=== PATIENT | male | born 1950 | race Caucasian/White ===

== ENCOUNTER → 2019-06-03 14:56 | Outpatient (CLI) | payer MEDICARE, BC, SELFPAY ==
--- NOTE | 2019-06-03 15:03 | XR_ITS ---
PROCEDURE: XR KNEE LT 3V CLINICAL INDICATION: LT KNEE PAIN COMPARISON: No exams were available for comparison FINDINGS: No fracture or dislocation. No lytic or blastic change. There is normal mineralization. Minimal osteoarthritic changes are present at the medial compartment Other findings:None. IMPRESSION: Minimal osteoarthritis medial compartment Dictated by: Charles Storm MD 06/03/2019 17:01 Electronically signed by Charles Storm MD in [facility] 06/03/2019 17:01
--- NOTE | 2019-06-03 15:03 | XR_ITS ---
PROCEDURE: XR SHOULDER LT MIN 2V CLINICAL INDICATION: LT SHOULDER PAIN COMPARISON: No exams were available for comparison FINDINGS: There is severe subacromial stenosis with loss of the subacromial space consistent with rotator cuff tear. This may be confirmed with MRI clinically desired. There is high-riding humeral head. Osteoarthritic changes are present at the glenohumeral joint. There is some mild cortical regularity the greater tuberosity the humerus. Mild osteoarthritic changes are present at the acromioclavicular joint. 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
== END ==
PROVIDERS: PCP Family Medicine; Visit Provider Family Medicine
DX: M25.512 Pain in left shoulder (principal); M25.562 Pain in left knee
CPT/HCPCS: 73030; 73562

== ENCOUNTER → 2020-10-23 13:15 | Outpatient (CLI) | payer MEDICARE, BC, SELFPAY ==
--- NOTE | 2020-10-23 13:21 | XR_ITS ---
PROCEDURE: XR HAND RT MIN 3V CLINICAL INDICATION: RIGHT HAND PAIN COMPARISON: No exams were available for comparison FINDINGS: Mild osteoarthritic changes are present at the 1st metacarpal-carpal joint, the 2nd and 3rd metacarpophalangeal joint, the proximal interphalangeal joint of the 4th digit. No fracture or dislocation. No lytic or blastic change. Other findings:None. IMPRESSION: Mild osteoarthritis of the hand Dictated by: Charles Storm MD 10/23/2020 14:29 Charles Storm MD in [facility] 10/23/2020 14:29
--- NOTE | 2020-10-23 13:32 | XR_ITS ---
PROCEDURE: XR HAND LT MIN 3V CLINICAL INDICATION: LT HAND PAIN COMPARISON: No exams were available for comparison FINDINGS: No fracture or dislocation. There is normal mineralization. There are mild osteoarthritic changes at the 1st carpal metacarpal joint, 1st metacarpal phalangeal joint, 1st interphalangeal joint, 2nd and 3rd metacarpophalangeal joint, 2nd 3rd 4th and 5th DIP joint. There is a small cortical cystic area involving the mid shaft of the proximal phalanx of the 4th digit medially nonspecific. Additional small cortical lucency is noted involving the mid aspect of the proximal phalanx of the 2nd digit medially Other findings:None. IMPRESSION: Degenerative changes as described above. Nonspecific cortical lucencies of the proximal phalanx of the 2nd and 4th digit of questionable clinical significance. Stability may be confirmed with follow-up. Dictated by: Charles Storm MD 10/23/2020 14:27 Charles Storm MD in [facility] 10/23/2020 14:27
== END ==
PROVIDERS: PCP Family Medicine; Visit Provider Orthopaedic Surgery
DX: M79.641 Pain in right hand (principal)
CPT/HCPCS: 73130

== ENCOUNTER 2020-10-23 14:31 | Outpatient (RCR) | payer MEDICARE, BC, SELFPAY | END 2020-10-23 15:20 | disposition home or self-care (01) | LOC: OT 14:31 | PROVIDERS: Visit Provider Orthopaedic Surgery | DX: M79.642 Pain in left hand (principal); M79.641 Pain in right hand; M18.0 Bilateral primary osteoarthritis of first carpometacarpal joints; G56.03 Carpal tunnel syndrome, bilateral upper limbs | CPT/HCPCS: 97763 ==

== ENCOUNTER → 2020-11-20 14:06 | Outpatient (CLI) | payer MEDICARE, BC, SELFPAY ==
--- NOTE | 2020-11-20 14:11 | XR_ITS ---
PROCEDURE: XR SHOULDER LT MIN 2V CLINICAL INDICATION: left shoulder pain COMPARISON: DX XR SHOULDER LT MIN 2V from 06/03/2019 FINDINGS: Mild osteoarthritic changes are present involving the glenohumeral joint and AC joint with high-riding humeral head and subacromial stenosis. The subacromial joint space is 4 mm. No fracture or dislocation. No lytic or blastic change. Other findings:None. IMPRESSION: Osteoarthritic change of the left glenohumeral joint with high-riding humeral head and subacromial stenosis. The subacromial stenosis appears less severe on today's study but could be related to different positioning. Dictated by: Charles Storm MD 11/20/2020 15:04 Charles Storm MD in [facility] 11/20/2020 15:04
== END ==
PROVIDERS: PCP Family Medicine; Visit Provider Orthopaedic Surgery
DX: M25.512 Pain in left shoulder (principal)
CPT/HCPCS: 73030

== ENCOUNTER → 2020-11-27 11:16 | Outpatient (POV) | payer MEDICARE, BC, SELFPAY ==
--- NOTE | 2020-11-27 12:32 | XR_ITS ---
PROCEDURE: XR HIP LT 2-3V W/PELVIS CLINICAL INDICATION: left hip pain COMPARISON: No exams were available for comparison FINDINGS: AP view of the pelvis shows minimal osteoarthritic changes of both hips. No acute fracture or dislocation. No lytic or blastic change. IMPRESSION: Minimal osteoarthritic change of the hips Dictated by: Charles Storm MD 11/27/2020 12:50 Charles Storm MD in [facility] 11/27/2020 12:50
--- NOTE | 2020-11-27 12:32 | XR_ITS ---
PROCEDURE: XR KNEE LT 4V CLINICAL INDICATION: left knee pain COMPARISON: DX XR KNEE LT 3V from 06/03/2019 FINDINGS: No fracture or dislocation. No lytic or blastic change. There is normal mineralization. There are minimal osteoarthritic changes involving the medial compartment. There is minimal chondrocalcinosis of the medial and lateral meniscus. Other findings:None. IMPRESSION: Mild osteoarthritic change with mild chondrocalcinosis. Overall not significantly changed. Dictated by: Charles Storm MD 11/27/2020 12:54 Charles Storm MD in [facility] 11/27/2020 12:54
== END ==
PROVIDERS: PCP Family Medicine; Visit Provider Dermatology
DX: M25.562 Pain in left knee (principal); M25.552 Pain in left hip
CPT/HCPCS: 73502; 73564

== ENCOUNTER → 2021-09-17 14:24 | Outpatient (CLI) | payer MEDICARE, BC, SELFPAY ==
--- NOTE | 2021-09-17 14:31 | XR_ITS ---
FINAL REPORT CLINICAL HISTORY: thumb pain FINDINGS: LEFT HAND: 3 views of the left hand were obtained. There is no acute fracture or dislocation. There are moderate degenerative changes of the 1st CMC and interphalangeal joints. There are mild degenerative changes elsewhere. There is a small foreign body on or in the tip of the 5th digit. IMPRESSION: Mild and moderate degenerative changes. Small foreign body on or in the tip of the 5th digit. Reviewed, Interpreted and Dictated by Esteban Dockery III, MD Transcribed by Perico Acuña Authenticated by Esteban Dockery III, MD on 09/17/2021 04:19:22 PM [facility]
--- NOTE | 2021-09-17 14:31 | XR_ITS ---
FINAL REPORT CLINICAL HISTORY: right hip pain FINDINGS: 2 views of the right hip were obtained. There is no acute fracture or dislocation. There are mild degenerative changes. There are no soft tissue abnormalities. IMPRESSION: Mild degenerative change. Reviewed, Interpreted and Dictated by Esteban Dockery III, MD Transcribed by Perico Acuña Authenticated by Esteban Dockery III, MD on 09/17/2021 04:19:21 PM [facility]
--- NOTE | 2021-09-17 14:31 | XR_ITS ---
FINAL REPORT CLINICAL HISTORY: hip pain, left hip pain , pt stated he had a hernia repair many years COMPARISON: November 27, 2020 FINDINGS: 2 views of the left hip with an AP pelvis were obtained. There is no acute fracture or dislocation. There are mild degenerative changes of both hips and the lower lumbar spine. There is a new small foreign body in the left lower pelvis that could represent an ingested foreign body. IMPRESSION: Mild degenerative change. Foreign body in the left lower pelvis could represent an ingested foreign body. Reviewed, Interpreted and Dictated by Esteban Dockery III, MD Transcribed by Perico Acuña Authenticated by Esteban Dockery III, MD on 09/17/2021 04:19:26 PM [facility]
--- NOTE | 2021-09-17 14:31 | XR_ITS ---
FINAL REPORT CLINICAL HISTORY: thumb pain FINDINGS: 3 views of the right hand were obtained. There is no acute fracture or dislocation. There are moderate degenerative changes at the 1st CMC joint. There are mild degenerative changes elsewhere. There is no acute soft tissue abnormality. IMPRESSION: Mild and moderate degenerative changes. Reviewed, Interpreted and Dictated by Esteban Dockery III, MD Transcribed by Perico Acuña Authenticated by Esteban Dockery III, MD on 09/17/2021 04:19:27 PM [facility]
== END ==
PROVIDERS: PCP Family Medicine; Visit Provider Surgery
DX: M25.551 Pain in right hip (principal); M25.552 Pain in left hip; M18.12 Unilateral primary osteoarthritis of first carpometacarpal joint, left hand; M18.11 Unilateral primary osteoarthritis of first carpometacarpal joint, right hand
CPT/HCPCS: 73130; 73502

== ENCOUNTER 2021-10-14 17:31 | Emergency (ER) | payer MEDICARE, BC, SELFPAY ==
[2021-10-14 17:32] VITALS: BP 147/85; PULSE 78; RESP 16; TEMP 36.7; O2SAT 95; BMI 21.9
--- NOTE | 2021-10-14 17:34 | CT_ITS ---
PROCEDURE INFORMATION: Exam: CT Head Without Contrast Exam date and time: 10/14/2021 5:33 PM Age: 71 years old Clinical indication: Dizziness and speech disturbance and weakness, extremity; Right; Slurred speech; Additional info: Left arm numbness, slurred speech TECHNIQUE: Imaging protocol: Computed tomography of the head without contrast. Radiation optimization: All CT scans at this facility use at least one of these dose optimization techniques: automated exposure control; mA and/or kV adjustment per patient size (includes targeted exams where dose is matched to clinical indication); or iterative reconstruction. COMPARISON: No relevant prior studies available. FINDINGS: Brain: There is no acute cortical infarction, intracranial hemorrhage or mass. Cerebral ventricles: No significant ventriculomegaly. Paranasal sinuses: There is prominent mucoperiosteal thickening in the left maxillary antrum.The remainder of the paranasal sinuses appear clear. Mastoid air cells: The middle ear cavities and mastoid air cells are clear. Vasculature: Atherosclerosis. Bones/joints: Unremarkable. No acute fracture. Soft tissues: Unremarkable. IMPRESSION: No acute intracranial findings.
--- NOTE | 2021-10-14 17:46 | PC.NURSE ---
Dena Durbin, RN at
[2021-10-14 17:47] VITALS: BP 136/77; PULSE 68; O2SAT 97
--- NOTE | 2021-10-14 17:47 | ECG_ITS ---
APPROVED REPORT Exam: Resting ECG HR:65 bpm ECG Measurements Heart Rate 65 AXES [place] 126 P 72 QRSd 90 QRS 67 QT 430 T 75 QTc 442 Conclusion SINUS RHYTHM NORMAL ECG UNCONFIRMED REPORT Electronically signed by : Andrei Hendrickson MD 10/15/2021 21:28:14
--- NOTE | 2021-10-14 17:49 | PC.NURSE ---
ED MD at speaking with patient and family
[2021-10-14 17:52] VITALS: BP 141/75; PULSE 65; O2SAT 96
[2021-10-14 18:02] LABS: Basophils # 0.1 K/mm3 (0-0.2); Basophils % 1.7 % (0.1-2.0); Eosinophils # 0.1 K/mm3 (0.0-0.4); Eosinophils % 1.3 % (0.1-12.0); Hemoglobin 13.5 g/dL (14.1-18.0); Lymphocytes # 0.7 K/mm3 (0.7-4.5); Lymphocytes % 13.4 % (10-50); Mean Corpuscular Hemoglobin 31.2 pg (27.0-31.2); Mean Corpuscular Volume 94.6 fl (80-94); Mean Platelet Volume 9.3 fl (7.4-10.4); Monocytes # 0.4 K/mm3 (0.1-1.0); Monocytes % 7.8 % (1.7-9.3); Neutrophils # 3.9 K/mm3 (1.8-7.8); Neutrophils % 75.8 % (37.0-80.0); Platelet Count 223 K/mm3 (142-424); Red Blood Count 4.33 M/mm3 (4.60-6.20); Red Cell Distribution Width 14.4 % (11.5-17.5); White Blood Count 5.2 K/mm3 (4.8-10.8)
[2021-10-14 18:06] LABS: Chloride 106 mmol/L (98-107); Sodium 138 mmol/L (136-145)
[2021-10-14 18:09] LABS: Alanine Aminotransferase 55 U/L (12-78); Albumin Level 3.8 g/dl (3.5-5.0); Albumin/Globulin Ratio 1.5 (1.1-1.8); Alkaline Phosphatase 52 U/L (38-126); Anion Gap 14.8 mEq/L (5-15); Aspartate Amino Transferase 66 U/L (17-59); Blood Urea Nitrogen 14 mg/dl (9-20); Carbon Dioxide 20 mmol/L (22.0-30.0); Creatinine Clearance Estimated 60 mL/min (50-200); Estimated Glomerular Filt Rate 132 ml/min (>60); GFR (African American) 160 ML/MIN (>60); Globulin 2.6 g/dL (1.3-3.2); Total Protein,Serum 6.4 g/dl (6.3-8.2)
[2021-10-14 18:10] LABS: Glucose 109 mg/dl (74-100)
[2021-10-14 18:14] LABS: Calcium 5.5 mg/dl (8.4-10.2); Potassium 2.8 mmoL/L (3.5-5.1)
[2021-10-14 18:27] LABS: Troponin I < 0.01 ng/ml (0.00-0.034)
[2021-10-14 19:02] LABS: Thyroid Stimulating Hormone 3.52 uIU/mL (0.465-4.68)
--- NOTE | 2021-10-14 19:35 | PC.NURSE ---
phone call to [facility] for consult with stroke neurology, Dr. Holt division sergeant
[2021-10-14 19:39] LABS: Ammonia < 9 umol/L (9-30)
--- NOTE | 2021-10-14 19:54 | PC.NURSE ---
ED doctor on phone with [facility]
--- NOTE | 2021-10-14 21:03 | HMH.EDGENADL ---
ED Disposition Clinical Impression: Weakness Disposition: Home, Self-Care Condition on Discharge: Good Additional Instructions: Follow-up with your primary care physician for repeat potassium and calcium check and for further recommendations regarding atorvastatin and baby aspirin, which you should take until meeting with your primary care physician. Please also follow-up with neurology at the [facility] if you are having persistent symptoms: [phone]. Please return to the emergency department with any new or worsening symptoms including weakness, slurred speech, change in sensation, change in mental status, confusion or any other new or concerning symptoms. Please take your home calcium and potassium supplements. Prescriptions: Aspirin [Aspirin 81mg chewable tab] 81 mg PO DAILY #30 tab Transmission Status: Pending to [facility] Atorvastatin Calcium [Lipitor 40mg Tablet*] 40 mg PO HS #30 tab Transmission Status: Pending to [facility] Referrals: Stephani Duenas MD [Primary Care Provider] - - Critical Care Critical Care Time: No Attestation: On 10/14/21, the high probability of a clinically significant, sudden or life threatening deterioration of the following system(s) required my full and direct attention, intervention and personal management. The time I documented below is in addition to time spent performing reported procedures but includes the following listed in this critical care notation. Medical Decision Making - Emanuel Inquiry Pt receiving controlled substance: No Vital Signs: 10/14/21 17:32 10/14/21 17:47 10/14/21 17:52 Temperature 98.0 F Temperature Source Oral Pulse Rate 68 65 Pulse Rate [Left Radial] 78 Respiratory Rate 16 Blood Pressure 136/77 141/75 H Blood Pressure [Right Arm] 147/85 H Blood Pressure Mean [Right Arm] 105 Blood Pressure Source Automatic Cuff Automatic Cuff Blood Pressure Source [Right Arm] Automatic Cuff Blood Pressure Position Sitting Sitting Blood Pressure Position [Right Arm] Sitting 02 Sat by Pulse Oximetry 95 97 96 Oxygen Delivery Method Room Air Room Air 10/14/21 21:43 Temperature 98.1 F Temperature Source Pulse Rate 60 Pulse Rate [Left Radial] Respiratory Rate 16 Blood Pressure 125/76 Blood Pressure [Right Arm] Blood Pressure Mean [Right Arm] Blood Pressure Source Blood Pressure Source [Right Arm] Blood Pressure Position Blood Pressure Position [Right Arm] 02 Sat by Pulse Oximetry Oxygen Delivery Method Room Air - Lab Data Lab Results 10/14/21 17:49: WBC 5.2, RBC 4.33 L, Hgb 13.5 L, Hct 41.0 L, MCV 94.6 H, MCH 31.2, MCHC 33.0, RDW 14.4, Plt Count 223, MPV 9.3, Neut % (Auto) 75.8, Lymph % (Auto) 13.4, Swisher % (Auto) 7.8, Eos % (Auto) 1.3, Baso % (Auto) 1.7, Neut # (Auto) 3.9, Lymph # (Auto) 0.7, Swisher # (Auto) 0.4, Eos # (Auto) 0.1, Baso # (Auto) 0.1 10/14/21 17:49: Sodium 138, Potassium 2.8 L*, Chloride 106, Carbon Dioxide 20 L, Anion Gap 14.8, BUN 14, Creatinine 0.60 L, Estimated Creat Clear 60, Estimated GFR 132, Est GFR ( Amer) 160, Glucose 109 H, Calcium 5.5 L, Total Bilirubin 1.0, AST 66 H, ALT 55, Alkaline Phosphatase 52, Troponin I < 0.01, Total Protein 6.4, Albumin 3.8, Globulin 2.6, Albumin/Globulin Ratio 1.5 10/14/21 17:49: TSH 3.52 10/14/21 19:18: Ammonia < 9 L 10/14/21 20:47: Troponin I 0.01 Result diagrams: 10/14/21 17:49 10/14/21 17:49 Orders (Tests/Meds): ED MEDICATIONS Discontinued Medications Generic Name Dose Route Start Last Admin Trade Name Freq PRN Reason Stop Dose Admin Potassium Chloride 40 meq 10/14/21 18:35 10/14/21 18:37 Potassium Chloride 20meq Tab PO 10/14/21 18:36 40 meq ONCE ONE Administration ORDERS Category Date Time Status Troponin I Q3H Lab 10/14/21 23:45 Ordered Urinalysis and Microscopic Stat Lab 10/14/21 17:37 Ordered Medical Decision Narrative: 71-year-old male presents emergency department with great
[2021-10-14 21:36] LABS: Troponin I 0.01 ng/ml (0.00-0.034)
[2021-10-14 21:43] VITALS: BP 125/76; PULSE 60; RESP 16; TEMP 36.7; O2SAT 96
== END 2021-10-14 22:07 | disposition home or self-care (01) ==
PROVIDERS: Emergency Provider Student in an Organized Health Care Education/Training Program; PCP Family Medicine
DX: R53.1 Weakness (principal); R20.2 Paresthesia of skin; I10 Essential (primary) hypertension; E78.5 Hyperlipidemia, unspecified; E03.9 Hypothyroidism, unspecified; F17.210 Nicotine dependence, cigarettes, uncomplicated; Z79.82 Long term (current) use of aspirin; Z79.899 Other long term (current) drug therapy; Z86.73 Personal history of transient ischemic attack (TIA), and cerebral infarction without residual deficits
CPT/HCPCS: 36415; 70450; 80053; 82140; 84443; 84484; 85025; 93005; 99284

== ENCOUNTER → 2021-10-25 10:17 | Outpatient (CLI) | payer MEDICARE, BC, SELFPAY ==
--- NOTE | 2021-10-25 10:23 | CT_ITS ---
FINAL REPORT TECHNIQUE: Pre-and postcontrast axial imaging of the abdomen and pelvis was obtained. Reconstruction images were obtained from the axial data. This study was performed with techniques to keep radiation doses as low as reasonably achievable, (ALARA). Individualized dose reduction technique using automated exposure control or adjustment of mA and/or kV according to the patient's size were employed. CLINICAL HISTORY: ELEVATED LIPASE COMPARISON: None. FINDINGS: The lung bases are clear. The liver is homogeneous. The gallbladder is present. The spleen, adrenal glands, and pancreas are unremarkable. On noncontrast imaging, there is a tiny nonobstructing left renal stone. There is no hydronephrosis or renal mass. There is wall thickening of the gastric fundus. There is also prominent duodenal wall thickening involving the proximal duodenum. There is no evidence of small bowel obstruction. There is no lymphadenopathy or ascites. The prostate is normal in size for age. There is a large amount of stool in the colon, consistent with constipation. The appendix is not visualized. There is no lymphadenopathy or ascites. No acute osseous abnormalities identified. IMPRESSION: Wall thickening of the gastric fundus as well as the proximal portions of the duodenum. Favor duodenitis and gastritis. Neoplasm felt to be less likely. Consider endoscopy. No CT findings of acute pancreatitis. However, a patient's can have mild acute pancreatitis based on laboratory studies without CT findings. Constipation. Authenticated by Jessica Back MD on 10/25/2021 11:57:51 AM [facility]
== END ==
PROVIDERS: PCP Family Medicine; Visit Provider Family Medicine
DX: R74.8 Abnormal levels of other serum enzymes (principal)
CPT/HCPCS: 74178; Q9967

== ENCOUNTER → 2021-11-24 14:07 | Outpatient (CLI) | payer MEDICARE, BC, SELFPAY | PROVIDERS: PCP Family Medicine; Visit Provider Internal Medicine | DX: U07.1 COVID-19 (principal) | CPT/HCPCS: C9803; U0003; U0005 ==

== ENCOUNTER → 2021-11-25 12:33 | Outpatient (CLI) | payer MEDICARE, BC, SELFPAY ==
[2021-11-25 12:50] LABS: Coronavirus 19, PCR Not Detected (NotDetected); Influenza A, PCR Not Detected (NotDetected); Influenza B, PCR Not Detected (NotDetected)
== END ==
PROVIDERS: PCP Family Medicine; Visit Provider Internal Medicine
DX: U07.1 COVID-19
CPT/HCPCS: C9803; U0003; U0005

== ENCOUNTER → 2021-11-26 10:58 | Outpatient (CLI) | payer MEDICARE, BC, SELFPAY ==
[2021-11-26 11:56] LABS: Coronavirus 19, PCR Not Detected (NotDetected); Influenza A, PCR Not Detected (NotDetected); Influenza B, PCR Not Detected (NotDetected)
== END ==
PROVIDERS: PCP Family Medicine; Visit Provider Internal Medicine
DX: U07.1 COVID-19 (principal)
CPT/HCPCS: C9803; U0003; U0005

== ENCOUNTER 2021-11-27 08:35 | Day surgery (SDC) | payer MEDICARE, BC, SELFPAY ==
[2021-11-25 11:22] VITALS: BMI 20.5
[2021-11-27 08:54] VITALS: BP 146/84; PULSE 68; RESP 18; TEMP 36.2; O2SAT 98
--- NOTE | 2021-11-27 09:08 | P.PN_ITS ---
[facility] Anesthesia Checklist - Patient Identification Patient Identification: Arm Band - Structural Data Admitted From: Home Planned Operative Procedure/s: EGD Consent for Planned Operative Procedure(s) Verified: Yes - NPO Status Verified Time NPO: 00:00 - Additional verifications Anesthesia Reactions: No - Airway Assessment C-Spine Mobility Assessed: Yes TMJ Mobility Assessed: Yes Dentition: Poor Dentition - Neurological Assessment Level of Consciousness: Awake Hx Seizures: No Numbness or tingling in extremities: No - Anesthesia Plan Anesthesia Risk discussed: Yes Anesthesia Plan: Verified ASA Class: II Anesthesia Type: MAC [facility] History I have reviewed the patient's past medical history: Yes Medical History: Reports:: Cancer (SKIN CANCER ON NOSE), Hyperlipidemia Denies:: Diabetes Mellitus Type 1, Diabetes Mellitus Type 2, Hypertension, Internal Pacemaker, Lung Disease, MRSA, Seizures *Have you ever received a pneumonia vaccine?: Yes *Have you received a flu vaccine this season?: Yes Other Medical History: Reports: Hypothyroidism, Thyroid Disease Anesthesia experience/problems:: None Other Surgeries: Yes: Colonoscopy, Hernia Repair, Other. No: Pacemaker Amputation: No Fractures: No - *Social History Last grade of school completed: 7th or 8th Smoking Status: Former smoker #Yrs smoked (if former smoker): 15 Smoking End Date: 35 YEARS AGO Alcohol Intake: current Alcohol Intake Frequency:: 0-2 drinks per day Substance Use Type: denies use *Occupational Status:: retired Housing: house Household Members: spouse *Travel in the last 8 weeks: None Family Hx:: Cancer, Diabetes, Heart Attack, Stroke
[2021-11-27 09:21] VITALS: O2SAT 98
--- NOTE | 2021-11-27 09:39 | HMH.SCOPE ---
- Procedure: Date: 11/27/21 Patient Date of :: 1950 Procedure Performed:: EGD Indications:: The patient is a 71 year old who had recent CT abdomen showing mild wall thickening of the gastric fundus and proximal duodenum. Performing Provider:: Raj Babcock MD Referring Provider:: Harsha Valero MD Sedation:: See nursing records Procedure:: The gastroscope was gently passed through the incisoral orifice into the oral cavity and under direct visualization the esophagus was intubated. The endoscope was passed down the esophagus, through the stomach, and into the duodenum. Color, texture, mucosa, and anatomy of the esophagus, stomach, and duodenum were carefully examined with the scope. Findings:: Oropharynx: normal Esophagus: normal EG Junction: mesaured at 40 cm. Z-line was slight irregular and there was a small tongue of salmon colored mucosa. Biopsies obtained Cardia: Small hiatal hernia Fundus: Gastritis. Somewhat nodular in appearance. Biopsies obtained Body: Gastritis. Biopsies obtained. Stomach was J-shaped Antrum: Gastritis. Biopsies obtained Duodenal bulb: Duodenitis. Focal area of gastric heterotopia. Biopsies obtained Duodenum (second and third portion): normal. Biopsies obtained Recommendations:: Await pathology results Complications:: None Estimated blood obtained (mL): 0
[2021-11-27 09:42] VITALS: BP 113/61; PULSE 93; RESP 18; TEMP 36.1; O2SAT 97
[2021-11-27 09:52] VITALS: BP 126/65; PULSE 85; RESP 18; TEMP 36.1; O2SAT 98
[2021-11-27 10:02] VITALS: BP 122/65; PULSE 79; RESP 18; TEMP 36.1; O2SAT 98
[2021-11-27 10:15] VITALS: BP 110/67; PULSE 78; RESP 18; TEMP 36.1; O2SAT 96
== END 2021-11-27 10:15 | disposition home or self-care (01) ==
LOC: OUTP 08:37
PROVIDERS: PCP Family Medicine; Visit Provider Internal Medicine
PROC: 0DJ08ZZ Inspection of Upper Intestinal Tract, Via Natural or Artificial Opening Endoscopic (ICD-10-PCS; CPT 43235; principal; 2021-11-27 09:30)
DX: R10.11 Right upper quadrant pain (principal); E78.5 Hyperlipidemia, unspecified; Z79.899 Other long term (current) drug therapy
CPT/HCPCS: 43239; 88305

== ENCOUNTER → 2022-02-11 11:56 | Outpatient (CLI) | payer MEDICARE, BC, SELFPAY ==
--- NOTE | 2022-02-11 12:00 | XR_ITS ---
FINAL REPORT CLINICAL HISTORY: Right knee pain FINDINGS: RIGHT KNEE 4 views of the right knee were obtained. There is no acute fracture or dislocation. There are mild degenerative changes. Meniscal calcifications are noted. IMPRESSION: No acute bony abnormality. Reviewed, Interpreted and Dictated by Esteban Dockery III, MD Transcribed by Diann Huntley Authenticated and [facility]
== END ==
PROVIDERS: PCP Family Medicine; Visit Provider Orthopaedic Surgery
DX: M25.561 Pain in right knee (principal)
CPT/HCPCS: 73564

== ENCOUNTER 2022-09-06 17:52 | Emergency (ER) | payer MEDICARE, BC, SELFPAY ==
--- NOTE | 2022-09-06 18:52 | EXP.UTC ---
Discharge Plan Disposition Patient Disposition: Home, Self-Care Condition: Good Prescriptions Prescriptions: New cephalexin 500 mg capsule 500 mg PO QID Qty: 40 0RF No Action potassium chloride 10 MEQ tablet extended release 10 meq PO BID levothyroxine 75 MCG capsule 75 mcg PO DAILY calcium-vitamin D3-vitamin K 1 EACH tablet,chewable 600 mg PO DAILY Referrals Follow up/Referrals: Harsha Valero MD [Primary Care Provider] - See instructions Activity Restrictions/Add. Instructions Additional Instructions/Restrictions: Keep the wound clean and dry. Keep a dressing on it if you are going to be getting it dirty. Watch the wound for signs of infection, such as redness, swelling, drainage, fever. etc. take tylenol or ibuprofen for pain. Follow up with your regular doctor. Return in 10 days to have the sutures removed. GO TO THE ER FOR ANY WORSENING SYMPTOMS OR CONCERNS. Check with your primary care physician about your last tetanus immunization and go get one if its been longer than 5 years. Clinical Impressions Clinical Impression: Laceration of left index finger Instructions Patient Instructions: DI for Laceration Repair -- Finger Discharge ED Provider: Gamaliel Beth [facility] General Stated complaint: ao 09/05, left hand pointer finger lac Time Seen by Provider: 09/06/22 18:52 History of Present Illness Provider Complaint: He states that yesterday evening (approx 16 hours ago) he slipped with a box blank machine feeder and cut his left index finger. Since then he has had trouble with the wound continuing to bleed and break open. He is not a diabetic. Related Data Home Medications Medication Instructions Recorded Confirmed calcium-vitamin D3-vitamin K 500 600 mg PO DAILY Supplement 11/25/21 09/06/22 mg-1,000 unit-40 mcg chewable tablet levothyroxine 75 mcg capsule 75 mcg PO DAILY THYROID 11/25/21 09/06/22 potassium chloride 10 mEq 10 meq PO BID Supplement 11/25/21 09/06/22 tablet,extended release Previous Rx's Medication Instructions Recorded cephalexin 500 mg capsule 500 mg PO QID #40 caps 09/06/22 Allergies Allergy/AdvReac Type Severity Reaction Status Date / Time No Known Allergies Allergy Verified 09/06/22 19:23 [facility] Disclaimer: The information contained in this section may have been updated after the patient was seen, as this information can be updated by other users. Social History Smoking Status: Former smoker pack-years: 15 second hand exposure: No alcohol intake: current substance use type: denies use current occupational status: retired Travel in the last 8 weeks: None household members: spouse housing: house current occupational exposures/hazards: No caffeine: Yes ROS Obtained: Yes All systems reviewed & no additional complaints except as documented Constitutional Constitutional: Denies chills and Denies fever(s) Eyes Eyes: Denies eye discharge ENT Ears, Nose, Mouth, and Throat: Denies dizziness, Denies otalgia and Denies sore throat Cardiovascular Cardiovascular: Denies chest pain Respiratory Respiratory: Denies shortness of breath, Denies chest congestion, Denies cough, Denies stridor and Denies wheezing Gastrointestinal Gastrointestingal: Denies nausea or vomiting Musculoskeletal Musculoskeletal: Reports system reviewed and no additional complaints, except as documented and Denies arthralgias Integumentary/Breasts Skin/Breast: Reports as per HPI Neurologic Neurologic: Denies dizziness and Denies paresthesias Allergic/Immunologic Allergic/Immunologic: Denies wheezing Physical Exam General General appearance: alert and in no apparent distress Head Head exam: atraumatic, normocephalic and normal inspection Eye Eye exam: Present normal appearance, PERRL and EOMI ENT ENT exam: Present normal exam, normal oropharynx, mucous membranes moist, TM'
[2022-09-06 19:00] VITALS: BP 156/83; PULSE 77; RESP 20; TEMP 36.8; O2SAT 95; BMI 21.6
--- NOTE | 2022-09-06 20:00 | PC.NURSE ---
Gamaliel spoke with Pt and stated that he will speak with pcp about tdap shot. If he needs one he will get it there.
[2022-09-06 20:09] VITALS: BP 156/83; PULSE 77; RESP 20; TEMP 36.8; O2SAT 95
== END 2022-09-06 20:08 | disposition home or self-care (01) ==
PROVIDERS: Emergency Provider Nurse Practitioner Family; PCP Family Medicine
DX: S61.211A Laceration without foreign body of left index finger without damage to nail, initial encounter (principal); F17.210 Nicotine dependence, cigarettes, uncomplicated; W26.8XXA Contact with other sharp object(s), not elsewhere classified, initial encounter
CPT/HCPCS: 12001; 99212; 99213; 99214; G0463

== ENCOUNTER 2022-10-31 09:46 | Day surgery (SDC) | payer MEDICARE, BC, SELFPAY ==
[2022-10-29 12:13] VITALS: BMI 18.8
[2022-10-31] VITALS (7 sets, daily range): BP systolic 84–145; BP diastolic 55–89; PULSE 66–89; RESP 16–18; TEMP 36.2–36.3; O2SAT 95–99
--- NOTE | 2022-10-31 10:26 | P.PN_ITS ---
[facility] Disclaimer: The information contained in this section may have been updated after the patient was seen, as this information can be updated by other users. Medical History Hemorrhoid Hypothyroid Surgical History History of colonoscopy Family History Other Family history of diabetes mellitus type II Family history of hypertension Social History Smoking Status: Former smoker pack-years: 15 second hand exposure: No alcohol intake: current substance use type: denies use current occupational status: retired Travel in the last 8 weeks: None household members: spouse housing: house current occupational exposures/hazards: No caffeine: Yes [facility] Anesthesia Checklist Patient Identification Patient Identification: Arm Band and Verbal (Name & ) Structural Data Admitted From: Home Planned Operative Procedure/s: Colonoscopy Consent for Planned Operative Procedure(s) Verified: Yes NPO Status Verified Time NPO: 00:00 Chart Verification Results Verified: BMP Additional verifications Anesthesia Reactions: No Airway Assessment C-Spine Mobility Assessed: Yes TMJ Mobility Assessed: Yes Dentition: Good Dentition Neurological Assessment Level of Consciousness: Awake Hx Seizures: No Numbness or tingling in extremities: No Anesthesia Plan Anesthesia Risk discussed: Yes Anesthesia Plan: Verified ASA Class: II Anesthesia Type: MAC
[2022-10-31 10:43] LABS: Potassium 3.7 mmoL/L (3.5-5.1)
--- NOTE | 2022-10-31 12:02 | HMH.SCOPE ---
Procedure: Date: 10/31/22 Patient Date of :: 1950 Procedure Performed:: Total colonoscopy with multiple polypectomy Indications:: Patient presents for colonoscopy.? He had recently presented to the office with complaints of internal hemorrhoids with some discomfort and bleeding. I performed colonoscopy in 2012 at which time he had adenomatous polyps removed. I had seen him in 2019 at which time he had an internal thrombosed hemorrhoid.? He underwent colonoscopy on 07/27/2018.? He did have a polyp at the hepatic flexure which was a tubular adenoma.? There were some internal hemorrhoids.? His internal hemorrhoid issue resolved with [id number] regimen.? Recently he has had some symptoms of hemorrhoid prolapse and discomfort.? He has had some minimal bleeding.? It sounds as though he does have a family history of colon issues and has had several members having colectomy.? After his colonoscopy in 2019 I had recommended a repeat colonoscopy in 3 to 5 years. As he was due for colonoscopy plan was made to proceed with this. He does state that his hemorrhoid issues have improved. Patient has had some recent appreciable weight loss. Performing Provider:: Esteban Reaves MD Referring Provider:: . Sedation:: MAC sedation Procedure:: Patient history was obtained and appropriate physical examination was performed. Patient's medications and allergies were reviewed. Informed consent was obtained after explaining the benefits, alternatives, and risks of the procedure including, but not limited to, bleeding, perforation, missed lesions, and adverse reaction to anesthesia medications. Patient was transported to endoscopy procedure room. Patient was connected to monitoring devices. Throughout the procedure the patient's blood pressure, pulse, and oxygen saturations were monitored continuously. Patient identification and planned procedure were verified by the staff. Patient was positioned in lateral decubitus position. Digital anorectal exam was performed. Variable stiffness Olympus colonoscope was inserted and advanced under direct visualization to the cecum. Adequacy of the colonic preparation was noted. The colonoscope was then slowly withdrawn while carefully examining the color, texture, anatomy, and integrity of the mucosoa circumferentially. Within the rectum retroflexion was performed. Colonoscope was then withdrawn. He had a severely atonic very redundant floppy colon Which made advancement difficult. This may be partially due to his weight loss. Ultimately with prolonged time the colonoscope was advanced to the cecum. At the hepatic flexure there was a sessile adenomatous appearing polyp removed with cold snare. Transverse colon there was an adenomatous polyp removed with cold snare. In the descending colon there was a moderate ridge polyp, sessile, removed with hot snare. There was redundancy of the colonic mucosa with colonic atony and overall colonic redundancy. Findings:: Profoundly atonic redundant floppy colon Redundant mucosa Adenomatous appearing polyps as noted above at the hepatic flexure, transverse colon, and descending colon Mild to moderately prolapsing internal hemorrhoids Recommendations:: It was felt that hemorrhoid banding would not be beneficial and may be problematic at this time. Given the complex adenomatous appearing polyps likely repeat colonoscopy 2 to 3 years pending the pathology. However, given the technical difficulty of his colonoscopy this may be best performed by a skilled anthropology faculty member with adult colonoscope. Complications:: None immediately apparent Estimated blood obtained (mL): 2
--- NOTE | 2022-10-31 12:30 | SUR.PHASEII ---
oral airway and nasal trumpet removed out of patient at 1225.
== END 2022-10-31 12:42 | disposition home or self-care (01) ==
PROVIDERS: PCP Family Medicine; Visit Provider Surgery
PROC: 0DJD8ZZ Inspection of Lower Intestinal Tract, Via Natural or Artificial Opening Endoscopic (ICD-10-PCS; principal; 2022-10-31 14:00)
DX: Z12.11 Encounter for screening for malignant neoplasm of colon (principal); D12.3 Benign neoplasm of transverse colon; K64.8 Other hemorrhoids
CPT/HCPCS: 45385; 36415; 84132; 88305; J2704

== ENCOUNTER → 2022-11-18 15:13 | Outpatient (CLI) | payer MEDICARE, BC, SELFPAY ==
--- NOTE | 2022-11-18 15:18 | XR_ITS ---
FINAL REPORT CLINICAL HISTORY: rt hand pain x yrs, NKT COMPARISON: 09/17/2021 FINDINGS: Right hand Three views were obtained. There is no acute fracture or dislocation. There is abnormal joint space narrowing of the 2nd and 3rd metacarpophalangeal joints , DIP and PIP joints. There are jrbt-[id number] hypertrophic changes of the basilar joint. No soft tissue abnormality is identified. IMPRESSION: Moderate changes of osteoarthritis, similar to previous. Reviewed, Interpreted and Dictated by Avery Bolanos MD Transcribed by Soumya Espinoza Authenticated and [facility]
== END ==
PROVIDERS: PCP Family Medicine; Visit Provider Orthopaedic Surgery
DX: M79.641 Pain in right hand (principal)
CPT/HCPCS: 73130

== ENCOUNTER 2023-07-29 13:34 | Outpatient (CLI) | payer MEDICARE, BC, SELFPAY ==
[2023-07-29 15:01] LABS: Creatinine,Urine Random 67 mg/dL (Not Estab.)
[2023-07-29 15:21] LABS: Microalbumin < 6.000 mg/L (0-16.7)
[2023-07-29 15:25] LABS: Anion Gap 13.3 mEq/L (5-15); Blood Urea Nitrogen 14 mg/dl (9-20); Calcium 8.4 mg/dl (8.4-10.2); Carbon Dioxide 21 mmol/L (22.0-30.0); Chloride 109 mmol/L (98-107); Chol/HDL Ratio 1.6 (1-3.5); Cholesterol 78 mg/dl (140-200); Estimated Glomerular Filt Rate 110 ml/min (>60); GFR (African American) 133 ML/MIN (>60); Glucose 93 mg/dl (74-100); HDL Cholesterol 50 mg/dl (40-60); Magnesium 1.1 mg/dl (1.6-2.3); Potassium 4.3 mmoL/L (3.5-5.1); Sodium 139 mmol/L (136-145); Triglycerides 42 mg/dl (30-150); VLDL Cholesterol 8 mg/dL (0-40)
[2023-07-29 15:37] LABS: Direct LDL Cholesterol < 30.00 mg/dL (100-129)
[2023-07-29 15:40] LABS: Free T4 (Free Thyroxine) 0.86 ng/dl (0.78-2.19)
[2023-07-29 15:56] LABS: Prostate Specific Ag Screen 0.5 ng/ml (0.0-4.0); Thyroid Stimulating Hormone 7.03 uIU/mL (0.465-4.68)
[2023-07-29 16:15] LABS: Vitamin B12 959 pg/mL (239-931)
== END 2023-07-29 23:59 ==
LOC: LAB 13:36
PROVIDERS: PCP Family Medicine; Visit Provider Family Medicine
DX: E83.42 Hypomagnesemia (principal); I10 Essential (primary) hypertension; E53.8 Deficiency of other specified B group vitamins; E03.9 Hypothyroidism, unspecified; Z12.5 Encounter for screening for malignant neoplasm of prostate
CPT/HCPCS: 36415; 80048; 80061; 82043; 82570; 82607; 83735; 84439; 84443; G0103

== ENCOUNTER 2023-10-27 16:01 | Outpatient (CLI) | payer MEDICARE, BC, SELFPAY ==
[2023-10-27 16:55] LABS: Basophils % 0.4 % (0.1-2.0); Eosinophils % 0.1 % (0.1-12.0); Hematocrit 31.5 % (42.0-52.0); Hemoglobin 9.7 g/dL (14.1-18.0); Lymphocytes % 14.9 % (10-50); Mean Corpuscular HGB Conc 30.9 g/dL (31.8-35.4); Mean Corpuscular Hemoglobin 33.7 pg (27.0-31.2); Mean Corpuscular Volume 108.9 fl (80-94); Mean Platelet Volume 8.6 fl (7.4-10.4); Monocytes # 0.4 K/mm3 (0.1-1.0); Monocytes % 5.9 % (1.7-9.3); Neutrophils # 5.3 K/mm3 (1.8-7.8); Neutrophils % 78.6 % (37.0-80.0); Platelet Count 266 K/mm3 (142-424); Red Blood Count 2.89 M/mm3 (4.60-6.20); Red Cell Distribution Width 14.6 % (11.5-17.5); White Blood Count 6.8 K/mm3 (4.8-10.8)
[2023-10-27 17:37] LABS: Erythrocyte Sedimentation Rate 12 mm/hr (0-20)
[2023-10-29 09:14] LABS: RA Latex Turbid. <10.0 IU/mL (<14.0)
[2023-10-29 16:13] LABS: Cytoplasmic (C-ANCA) <1:20 titer (Neg:<1:20); Perinuclear (P-ANCA) <1:20 titer (Neg:<1:20)
[2023-10-30 17:10] LABS: Antinuclear Antibodies, IFA Negative (.)
== END 2023-10-27 23:59 | disposition home or self-care (01) ==
LOC: LAB 16:02
PROVIDERS: PCP Family Medicine; Visit Provider Ophthalmology
DX: H16.041 Marginal corneal ulcer, right eye (principal)
CPT/HCPCS: 36415; 85025; 85651; 86038; 86256; 86431

== ENCOUNTER 2023-11-02 15:19 | Outpatient (CLI) | payer MEDICARE, BC, SELFPAY ==
--- NOTE | 2023-11-02 15:29 | XR_ITS ---
FINAL REPORT CLINICAL HISTORY: hip pain COMPARISON: None FINDINGS: 3 images of the left hip were obtained. There is no evidence of fracture or dislocation. Mild degenerative change is present. There is no soft tissue abnormality identified. IMPRESSION: No acute bony abnormality. Mild degenerative changes present. Reviewed, Interpreted and Dictated by Esteban Dockery III, MD Transcribed by Mary Cabrera Authenticated and . [facility]
== END 2023-11-02 23:59 | disposition home or self-care (01) ==
LOC: RAD 15:20
PROVIDERS: PCP Family Medicine; Visit Provider Physician Assistant
DX: M70.62 Trochanteric bursitis, left hip (principal)
CPT/HCPCS: 73502

== ENCOUNTER 2024-02-04 14:20 | Outpatient (CLI) | payer MEDICARE, BC, SELFPAY ==
[2024-02-04 15:36] LABS: Magnesium 1.2 mg/dl (1.6-2.3)
== END 2024-02-04 23:59 | disposition home or self-care (01) ==
LOC: LAB 14:26
PROVIDERS: PCP Family Medicine; Visit Provider Family Medicine
DX: E83.42 Hypomagnesemia (principal)
CPT/HCPCS: 36415; 83735

== ENCOUNTER 2024-02-15 13:32 | Outpatient (CLI) | payer MEDICARE, BC, SELFPAY ==
[2024-02-15 13:32] VITALS: BMI 17.0
[2024-02-15] MEDS: SODIUM CHLORIDE 0.9% 50ML BAG 50 ML IV (14:15)
[2024-02-15 14:16] VITALS: BP 110/56; PULSE 69; RESP 16; TEMP 36.6; O2SAT 96
[2024-02-15] MEDS: MAGNESIUM SULFATE IN WATER 2 GM/50 ML PIGGYBACK IV (14:16)
[2024-02-15] MEDS: SODIUM CHLORIDE 0.9% 10ML FLUSH SYRINGE 10 ML IV (14:16)
[2024-02-15 15:15] VITALS: BP 120/62; PULSE 59; RESP 16; TEMP 36.6; O2SAT 96
== END 2024-02-15 15:20 | disposition home or self-care (01) ==
PROVIDERS: PCP Family Medicine; Visit Provider Family Medicine
DX: E83.42 Hypomagnesemia (principal)
CPT/HCPCS: 83735; 96365; J3475

== ENCOUNTER 2024-02-22 13:06 | Outpatient (CLI) | payer MEDICARE, BC, SELFPAY ==
[2024-02-22 13:15] VITALS: BMI 23.2
[2024-02-22] MEDS: SODIUM CHLORIDE 0.9% 50ML BAG 50 ML IV (13:25)
[2024-02-22] MEDS: SODIUM CHLORIDE 0.9% 10ML FLUSH SYRINGE 10 ML IV (13:25)
[2024-02-22] MEDS: MAGNESIUM SULFATE IN WATER 2 GM/50 ML PIGGYBACK IV ×2 (13:25→14:33)
[2024-02-22 13:32] VITALS: BP 96/47; PULSE 72; RESP 18; TEMP 36.4; O2SAT 96
[2024-02-22 13:44] LABS: Magnesium 0.8 mg/dl (1.6-2.3)
[2024-02-22 14:37] VITALS: BP 105/54; PULSE 59; RESP 16; O2SAT 97
[2024-02-22 15:35] VITALS: BP 114/54; PULSE 59; RESP 18; TEMP 36.4; O2SAT 96
== END 2024-02-22 15:35 | disposition home or self-care (01) ==
LOC: INF 13:07
PROVIDERS: PCP Family Medicine; Visit Provider Family Medicine
DX: E83.42 Hypomagnesemia (principal)
CPT/HCPCS: 83735; 96365; 96366; J3475

== ENCOUNTER 2024-02-25 16:07 | Outpatient (CLI) | payer MEDICARE, BC, SELFPAY ==
[2024-02-25 18:15] LABS: Erythrocyte Sedimentation Rate 9 mm/hr (0-20)
[2024-02-29 14:13] LABS: Sjogren's Anti-SS-A <0.2 AI (0.0-0.9); Sjogren's Anti-SS-B <0.2 AI (0.0-0.9)
[2024-03-08 17:18] LABS: Vitamin A 3.8 ug/dL (22.0-69.5)
== END 2024-02-25 23:59 | disposition home or self-care (01) ==
LOC: LAB 16:08
PROVIDERS: Ophthalmology; PCP Family Medicine; Visit Provider Ophthalmology
DX: H16.0 Corneal ulcer (principal)
CPT/HCPCS: 36415; 84590; 85651; 86235

== ENCOUNTER 2024-02-26 13:05 | Outpatient (CLI) | payer MEDICARE, BC, SELFPAY ==
[2024-02-26 13:27] VITALS: BP 121/68; PULSE 62; RESP 18; TEMP 36.9; O2SAT 97
[2024-02-26] MEDS: MAGNESIUM SULFATE IN WATER 2 GM/50 ML PIGGYBACK IV ×2 (13:28→14:30)
[2024-02-26] MEDS: SODIUM CHLORIDE 0.9% 10ML FLUSH SYRINGE 10 ML IV (13:28)
[2024-02-26] MEDS: SODIUM CHLORIDE 0.9% 50ML BAG 50 ML IV (13:28)
[2024-02-26 13:48] VITALS: BMI 17.0
[2024-02-26 14:09] LABS: Magnesium 1.3 mg/dl (1.6-2.3)
[2024-02-26 14:30] VITALS: BP 118/66; PULSE 69; RESP 18; O2SAT 98
[2024-02-26 15:40] VITALS: BP 116/68; PULSE 78; RESP 20; TEMP 36.6; O2SAT 98
== END 2024-02-26 15:52 | disposition home or self-care (01) ==
LOC: INF 13:06
PROVIDERS: PCP Family Medicine; Visit Provider Family Medicine
DX: E83.42 Hypomagnesemia (principal)
CPT/HCPCS: 83735; 96365; 96366; J3475

== ENCOUNTER 2024-02-29 12:53 | Outpatient (CLI) | payer MEDICARE, BC, SELFPAY ==
[2024-02-29 13:02] VITALS: BMI 17.2
[2024-02-29 13:29] LABS: Magnesium 1.4 mg/dl (1.6-2.3)
[2024-02-29 13:43] VITALS: BP 120/65; PULSE 67; RESP 16; TEMP 36.9; O2SAT 96
[2024-02-29] MEDS: SODIUM CHLORIDE 0.9% 10ML FLUSH SYRINGE 10 ML IV (13:43)
[2024-02-29] MEDS: SODIUM CHLORIDE 0.9% 50ML BAG 50 ML IV (13:43)
[2024-02-29] MEDS: MAGNESIUM SULFATE IN WATER 2 GM/50 ML PIGGYBACK IV ×2 (13:43→14:45)
[2024-02-29 14:43] VITALS: BP 120/73; PULSE 62; RESP 16; O2SAT 96
[2024-02-29 15:45] VITALS: BP 121/68; PULSE 68; RESP 18; TEMP 36.9; O2SAT 97
== END 2024-02-29 15:55 | disposition home or self-care (01) ==
LOC: INF 12:54
PROVIDERS: PCP Family Medicine; Visit Provider Family Medicine
DX: E83.42 Hypomagnesemia (principal)
CPT/HCPCS: 83735; 96365; 96366; J3475

== ENCOUNTER 2024-03-04 13:02 | Outpatient (CLI) | payer MEDICARE, BC, SELFPAY ==
[2024-03-04 13:14] VITALS: BMI 17.0
[2024-03-04] MEDS: MAGNESIUM SULFATE IN WATER 4 GM/100 ML PIGGYBACK IV (13:42)
[2024-03-04] MEDS: SODIUM CHLORIDE 0.9% 50ML BAG 50 ML IV (13:42)
[2024-03-04 13:50] VITALS: BP 106/66; PULSE 66; RESP 16; TEMP 36.2; O2SAT 97
[2024-03-04 13:57] LABS: Basophils % 0.1 % (0.1-2.0); Eosinophils % 0.4 % (0.1-12.0); Hemoglobin 11.4 g/dL (14.1-18.0); Lymphocytes # 0.6 K/mm3 (0.7-4.5); Lymphocytes % 7.4 % (10-50); Mean Corpuscular HGB Conc 32.6 g/dL (31.8-35.4); Mean Corpuscular Hemoglobin 33.2 pg (27.0-31.2); Mean Corpuscular Volume 101.9 fl (80-94); Mean Platelet Volume 9.5 fl (7.4-10.4); Monocytes # 0.4 K/mm3 (0.1-1.0); Monocytes % 4.8 % (1.7-9.3); Neutrophils # 6.6 K/mm3 (1.8-7.8); Neutrophils % 87.3 % (37.0-80.0); Platelet Count 182 K/mm3 (142-424); Red Blood Count 3.44 M/mm3 (4.60-6.20); Red Cell Distribution Width 14.8 % (11.5-17.5); White Blood Count 7.5 K/mm3 (4.8-10.8)
[2024-03-04 14:05] LABS: MANUAL DIFFERENTIAL MANUAL DIFFERENTIAL (MANUAL DIFF)
[2024-03-04 14:23] LABS: Anisocytosis 1+; Lymphocytes % 8 % (10-50); Monocytes % 1 % (2-9); Neutrophils % 91 % (42-76); Platelet Estimate Normal; Poikilocytosis 1+; Total Cells Counted 100
[2024-03-04 14:25] LABS: Alanine Aminotransferase 83 U/L (12-78); Albumin Level 2.5 g/dl (3.5-5.0); Albumin/Globulin Ratio 1.1 (1.1-1.8); Alkaline Phosphatase 76 U/L (38-126); Anion Gap 6.9 mEq/L (5-15); Aspartate Amino Transferase 53 U/L (17-59); Blood Urea Nitrogen 23 mg/dl (9-20); Calcium 7.5 mg/dl (8.4-10.2); Carbon Dioxide 19 mmol/L (22.0-30.0); Chloride 115 mmol/L (98-107); Creatine Kinase 144 U/L (55-170); Creatinine Clearance Estimated 49 mL/min (50-200); Estimated Glomerular Filt Rate 163 ml/min (>60); GFR (African American) 197 ML/MIN (>60); Globulin 2.2 g/dL (1.3-3.2); Glucose 80 mg/dl (74-100); Magnesium 1.2 mg/dl (1.6-2.3); Phosphorous 2.7 mg/dl (2.5-4.5); Sodium 138 mmol/L (136-145); Total Protein,Serum 4.7 g/dl (6.3-8.2)
[2024-03-04 14:30] LABS: C-Reactive Protein < 0.3 mg/L (0-4); Potassium 2.9 mmoL/L (3.5-5.1)
[2024-03-04 14:42] LABS: Free T4 (Free Thyroxine) 0.78 ng/dl (0.78-2.19)
[2024-03-04 14:50] VITALS: BP 104/61; PULSE 70; RESP 16
[2024-03-04 14:56] LABS: Thyroid Stimulating Hormone 2.85 uIU/mL (0.465-4.68)
[2024-03-04 15:21] LABS: Vitamin B12 > 1000 pg/mL (239-931)
[2024-03-04 16:01] VITALS: BP 105/74; PULSE 66; RESP 16
== END 2024-03-04 16:20 | disposition home or self-care (01) ==
LOC: INF 13:05
PROVIDERS: PCP Family Medicine; Visit Provider Family Medicine
DX: R53.83 Other fatigue (principal); E03.9 Hypothyroidism, unspecified
CPT/HCPCS: 80053; 82550; 82607; 83735; 84100; 84439; 84443; 85007; 85025; 85027; 86140; 96365; 96366; J3475

== ENCOUNTER 2024-03-07 12:50 | Outpatient (CLI) | payer MEDICARE, BC, SELFPAY ==
[2024-03-07 12:54] VITALS: BMI 17.0
[2024-03-07 13:33] VITALS: BP 156/74; PULSE 73; RESP 16; TEMP 36.6; O2SAT 99
[2024-03-07] MEDS: MAGNESIUM SULFATE IN WATER 2 GM/50 ML PIGGYBACK IV ×2 (13:33→14:30)
[2024-03-07] MEDS: SODIUM CHLORIDE 0.9% 50ML BAG 50 ML IV (13:34)
[2024-03-07] MEDS: SODIUM CHLORIDE 0.9% 10ML FLUSH SYRINGE 10 ML IV (13:36)
[2024-03-07 13:37] LABS: Magnesium 1.4 mg/dl (1.6-2.3)
[2024-03-07 14:30] VITALS: BP 134/72; PULSE 59; RESP 16; O2SAT 98
[2024-03-07 15:35] VITALS: BP 132/75; PULSE 64; RESP 18; TEMP 36.7; O2SAT 99
== END 2024-03-07 15:40 | disposition home or self-care (01) ==
LOC: INF 12:51
PROVIDERS: PCP Family Medicine; Visit Provider Family Medicine
DX: E87.6 Hypokalemia (principal)
CPT/HCPCS: 83735; 84132; 96365; 96366; J3475

== ENCOUNTER 2024-03-11 12:40 | Outpatient (CLI) | payer MEDICARE, BC, SELFPAY ==
[2024-03-11 12:49] VITALS: BMI 17.0
[2024-03-11] MEDS: SODIUM CHLORIDE 0.9% 50ML BAG 50 ML IV (12:50)
[2024-03-11] MEDS: MAGNESIUM SULFATE IN WATER 4 GM/100 ML PIGGYBACK IV (12:50)
[2024-03-11 13:00] VITALS: BP 92/58; PULSE 73; RESP 18; O2SAT 97
[2024-03-11 13:14] LABS: Magnesium 1.4 mg/dl (1.6-2.3)
[2024-03-11 15:30] VITALS: BP 108/58; PULSE 76; RESP 18; O2SAT 98
== END 2024-03-11 15:30 | disposition home or self-care (01) ==
LOC: INF 12:42
PROVIDERS: PCP Family Medicine; Visit Provider Family Medicine
DX: E83.42 Hypomagnesemia (principal)
CPT/HCPCS: 83735; 96365; 96366; J3475

== ENCOUNTER 2024-03-14 13:01 | Outpatient (CLI) | payer MEDICARE, BC, SELFPAY ==
[2024-03-14 13:13] VITALS: BMI 17.0
[2024-03-14] MEDS: MAGNESIUM SULFATE IN WATER 2 GM/50 ML PIGGYBACK IV ×2 (13:25→14:25)
[2024-03-14] MEDS: 0.9 % SODIUM CHLORIDE 50 ML IV (13:25)
[2024-03-14 13:26] VITALS: BP 102/64; PULSE 64; RESP 18; O2SAT 100
[2024-03-14 13:56] LABS: Magnesium 1.4 mg/dl (1.6-2.3)
[2024-03-14 14:36] VITALS: BP 126/73; PULSE 73; RESP 16; TEMP 36.7; O2SAT 99
[2024-03-14 15:25] VITALS: BP 109/62; PULSE 72; RESP 16; TEMP 36.7; O2SAT 99
[2024-03-14 15:51] LABS: Microscopic, Urine URINE MICROSCOPIC (MICROSCOPIC)
[2024-03-14 16:09] LABS: Appearance,Urine CLEAR (Clear); Bilirubin,Urine Negative (Negative); Blood, Urine Negative (Negative); Color,Urine YELLOW (Yellow); Glucose,Urine (UA) TRACE (Negative); Ketones,Urine Negative (Negative); Leukocyte Esterase,Urine Negative (Negative); Nitrate,Urine Negative (Negative); Protein,Urine Negative (Negative); Specific Gravity, Urine >= 1.030 (1.005-1.030); Urobilinogen,Urine 0.2 EU/dl (0.2)
[2024-03-14 17:13] LABS: Bacteria,Urine 1+ /lpf; Squamous Epithelial Cell,Urine Occasional #/hpf (0-5)
== END 2024-03-14 15:30 | disposition home or self-care (01) ==
LOC: INF 13:02
PROVIDERS: PCP Family Medicine; Visit Provider Family Medicine
DX: E83.42 Hypomagnesemia (principal)
CPT/HCPCS: 81001; 83735; 96365; 96366; J3475

== ENCOUNTER 2024-03-18 11:54 | Outpatient (CLI) | payer MEDICARE, BC, SELFPAY ==
[2024-03-18 12:03] VITALS: BMI 17.0
[2024-03-18] MEDS: MAGNESIUM SULFATE IN WATER 2 GM/50 ML PIGGYBACK IV ×3 (12:23→14:30)
[2024-03-18 12:30] VITALS: BP 111/63; PULSE 70; RESP 16
[2024-03-18] MEDS: 0.9 % SODIUM CHLORIDE 50 ML IV (12:30)
[2024-03-18 12:35] LABS: Magnesium 1.2 mg/dl (1.6-2.3)
[2024-03-18 13:30] VITALS: BP 103/60; PULSE 68; RESP 16
[2024-03-18 14:30] VITALS: BP 104/60; PULSE 69; RESP 16; O2SAT 97
[2024-03-18 15:30] VITALS: BP 102/64; PULSE 70; RESP 16
== END 2024-03-18 16:15 | disposition home or self-care (01) ==
LOC: INF 11:57
PROVIDERS: PCP Family Medicine; Visit Provider Family Medicine
DX: E83.42 Hypomagnesemia (principal)
CPT/HCPCS: 83735; 96365; 96366; J3475

== ENCOUNTER 2024-03-21 12:24 | Outpatient (CLI) | payer MEDICARE, BC, SELFPAY ==
[2024-03-21 12:32] VITALS: BMI 17.0
[2024-03-21 12:40] VITALS: BP 106/62; PULSE 69; RESP 18; O2SAT 97
[2024-03-21] MEDS: SODIUM CHLORIDE 0.9% 50ML BAG 50 ML IV (12:40)
[2024-03-21] MEDS: MAGNESIUM SULFATE IN WATER 2 GM/50 ML PIGGYBACK IV ×2 (12:45→13:40)
[2024-03-21 13:13] LABS: Magnesium 1.5 mg/dl (1.6-2.3)
[2024-03-21 15:50] VITALS: BP 132/68; PULSE 82; RESP 18; O2SAT 97
== END 2024-03-21 15:50 | disposition home or self-care (01) ==
LOC: INF 12:25
PROVIDERS: PCP Family Medicine; Visit Provider Family Medicine
DX: E83.42 Hypomagnesemia (principal)
CPT/HCPCS: 83735; 96365; 96366; J3475

== ENCOUNTER 2024-03-25 12:18 | Outpatient (CLI) | payer MEDICARE, BC, SELFPAY ==
[2024-03-25 12:31] VITALS: BMI 17.5
[2024-03-25 12:33] VITALS: BP 114/70; PULSE 69; RESP 18; O2SAT 96
[2024-03-25] MEDS: SODIUM CHLORIDE 0.9% 50ML BAG 50 ML IV (12:34)
[2024-03-25] MEDS: MAGNESIUM SULFATE IN WATER 2 GM/50 ML PIGGYBACK IV (12:34)
[2024-03-25 12:54] LABS: Magnesium 1.4 mg/dl (1.6-2.3)
[2024-03-25] MEDS: MAGNESIUM SULFATE IN WATER 4 GM/100 ML PIGGYBACK IV (13:33)
[2024-03-25 15:39] VITALS: BP 155/108; PULSE 89; RESP 18; O2SAT 96
[2024-03-26 08:51] LABS: Sodium, Urine 52 mmol/24 hr (58-337); Sodium, Urine 61 mmol/L (Not Estab.)
== END 2024-03-25 15:40 | disposition home or self-care (01) ==
LOC: INF 12:19
PROVIDERS: Internal Medicine Rheumatology; PCP Family Medicine; Visit Provider Family Medicine
DX: E83.42 Hypomagnesemia (principal)
CPT/HCPCS: 83735; 84133; 84300; 96365; 96366; J3475

== ENCOUNTER 2024-03-28 12:03 | Outpatient (CLI) | payer MEDICARE, BC, SELFPAY ==
[2024-03-28 12:05] VITALS: BMI 17.0
[2024-03-28 12:11] VITALS: BP 114/65; PULSE 89; RESP 16; TEMP 36.6; O2SAT 96
[2024-03-28] MEDS: [UNRECOGNIZED DRUG - OTHER] IV (12:11)
[2024-03-28] MEDS: MAGNESIUM SULFATE IV (12:11)
[2024-03-28] MEDS: SODIUM CHLORIDE 0.9% 10ML FLUSH SYRINGE 10 ML IV (12:11)
[2024-03-28] MEDS: SODIUM CHLORIDE 0.9% 50ML BAG 50 ML IV (12:11)
[2024-03-28 12:24] LABS: Magnesium 1.6 mg/dl (1.6-2.3)
[2024-03-28 13:11] VITALS: BP 107/64; PULSE 58; RESP 16; O2SAT 97
[2024-03-28 14:11] VITALS: BP 98/53; PULSE 80; RESP 14; O2SAT 97
[2024-03-28 15:11] VITALS: BP 109/59; RESP 16; TEMP 36.6; O2SAT 96
== END 2024-03-28 15:15 | disposition home or self-care (01) ==
LOC: INF 12:04
PROVIDERS: PCP Family Medicine; Visit Provider Family Medicine
DX: E83.42 Hypomagnesemia (principal)
CPT/HCPCS: 83735; 96365; 96366; J3475

== ENCOUNTER 2024-04-01 11:55 | Outpatient (CLI) | payer MEDICARE, BC, SELFPAY ==
[2024-04-01 12:04] VITALS: BMI 17.0
[2024-04-01] MEDS: SODIUM CHLORIDE 0.9% 50ML BAG 50 ML IV (12:27)
[2024-04-01] MEDS: MAGNESIUM SULFATE IV (12:27)
[2024-04-01] MEDS: [UNRECOGNIZED DRUG - OTHER] IV (12:27)
[2024-04-01 12:30] VITALS: BP 114/65; PULSE 90; RESP 16
[2024-04-01 12:45] LABS: Magnesium 1.6 mg/dl (1.6-2.3)
[2024-04-01 13:30] VITALS: BP 112/60; PULSE 81; RESP 16
[2024-04-01 14:30] VITALS: BP 107/62; PULSE 75; RESP 16
[2024-04-01 15:30] VITALS: BP 110/66; PULSE 83; RESP 16
== END 2024-04-01 15:50 | disposition home or self-care (01) ==
LOC: INF 11:57
PROVIDERS: PCP Family Medicine; Visit Provider Family Medicine
DX: E83.42 Hypomagnesemia (principal)
CPT/HCPCS: 83735; 96365; 96366; J3475

== ENCOUNTER 2024-04-04 14:42 | Inpatient (IN) | payer MEDICARE, BC, SELFPAY ==
[2024-04-04] VITALS (8 sets, daily range): BP systolic 108–124; BP diastolic 68–78; PULSE 68–86; RESP 16–20; TEMP 36.2–36.9; O2SAT 91–95; BMI 17.2; BMI 17.1
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
[2024-04-04 15:00] LABS: Basophils % 0.4 % (0.1-2.0); Eosinophils % 0.3 % (0.1-12.0); Hemoglobin 12.8 g/dL (14.1-18.0); Lymphocytes # 0.5 K/mm3 (0.7-4.5); Lymphocytes % 9.2 % (10-50); Mean Corpuscular HGB Conc 33.8 g/dL (31.8-35.4); Mean Corpuscular Hemoglobin 32.3 pg (27.0-31.2); Mean Corpuscular Volume 95.6 fl (80-94); Mean Platelet Volume 8.6 fl (7.4-10.4); Monocytes # 0.1 K/mm3 (0.1-1.0); Monocytes % 2.3 % (1.7-9.3); Neutrophils # 5.2 K/mm3 (1.8-7.8); Neutrophils % 87.8 % (37.0-80.0); Platelet Count 276 K/mm3 (142-424); Red Blood Count 3.98 M/mm3 (4.60-6.20); Red Cell Distribution Width 14.9 % (11.5-17.5); White Blood Count 5.9 K/mm3 (4.8-10.8)
--- NOTE | 2024-04-04 15:00 | ECG_ITS ---
APPROVED REPORT Exam: Resting ECG HR:79 bpm ECG Measurements Heart Rate 79 AXES QRSd 97 QRS 2 QT 399 T -21 QTc 433 Conclusion ATRIAL FIBRILLATION LOW QRS VOLTAGE IN EXTREMITY LEADS [QRS DEFLECTION < 0.5 mV IN LIMB LEADS] MODERATE ST DEPRESSION [0.05+ mV ST DEPRESSION] ABNORMAL ECG UNCONFIRMED REPORT Electronically signed by : Gamaliel Joseph, 04/04/2024 23:06:50
[2024-04-04 15:01] LABS: Albumin Level 2.1 g/dl (3.5-5.0)
[2024-04-04 15:02] LABS: Chloride 109 mmol/L (98-107); Potassium 3.3 mmoL/L (3.5-5.1); Sodium 135 mmol/L (136-145)
[2024-04-04 15:04] LABS: Alanine Aminotransferase 50 U/L (12-78); Anion Gap 9.3 mEq/L (5-15); Aspartate Amino Transferase 45 U/L (17-59); Blood Urea Nitrogen 35 mg/dl (9-20); Carbon Dioxide 20 mmol/L (22.0-30.0); Estimated Glomerular Filt Rate 110 ml/min (>60); GFR (African American) 133 ML/MIN (>60)
[2024-04-04 15:05] LABS: Albumin/Globulin Ratio 0.8 (1.1-1.8); Alkaline Phosphatase 115 U/L (38-126); Bilirubin,Total 0.9 mg/dl (0.2-1.3); Calcium 7.1 mg/dl (8.4-10.2); Globulin 2.5 g/dL (1.3-3.2); Glucose 71 mg/dl (74-100); Magnesium 1.8 mg/dl (1.6-2.3); Phosphorous 3.8 mg/dl (2.5-4.5); Total Protein,Serum 4.6 g/dl (6.3-8.2)
[2024-04-04 15:13] LABS: MANUAL DIFFERENTIAL MANUAL DIFFERENTIAL (MANUAL DIFF)
[2024-04-04 15:16] LABS: Troponin I < 0.01 ng/ml (0.00-0.034)
--- NOTE | 2024-04-04 15:16 | ECG_ITS ---
APPROVED REPORT Exam: Resting ECG HR:76 bpm ECG Measurements Heart Rate 76 AXES NJ 122 P 43 QRSd 98 QRS 9 QT 372 T 55 QTc 403 Conclusion Sinus rhythm Electronically signed by : TIFFANY PATHAK, 04/05/2024 15:05:27
[2024-04-04] MEDS: ACETAMINOPHEN 1,000MG/100ML VIAL 1000 MG IV (15:17)
[2024-04-04] MEDS: 0.9 % SODIUM CHLORIDE 1000ML 1,000 ML 999 ML IV (15:18)
[2024-04-04 15:25] LABS: Lactic Acid 1.2 mmol/L (0.7-2.1)
[2024-04-04 15:31] LABS: Eosinophils % 1 % (0-3); Lymphocytes % 4 % (10-50); Monocytes % 2 % (2-9); Neutrophils % 93 % (42-76); RBC Morphology Normal; Total Cells Counted 100
[2024-04-04 15:32] LABS: Platelet Estimate Slight Increase
[2024-04-04] MEDS: IOPAMIDOL-370 (76%);100ML BOTTLE 75 ML IV (16:11)
[2024-04-04] MEDS: SODIUM CHLORIDE 0.9% 10ML SYR (RAD ONLY) 10 ML IV (16:11)
--- NOTE | 2024-04-04 17:39 | PC.NURSE ---
PT ACCEPTED BY DR PURVIS FOR ADMISSION
--- NOTE | 2024-04-04 17:41 | PC.NURSE ---
JEEPER OPERATOR NOTIFIED OF ADMISSION
--- NOTE | 2024-04-04 17:53 | PC.NURSE ---
REPORT CALLED TO CHARLIE KEARNEY
--- NOTE | 2024-04-04 18:02 | PC.NURSE ---
arrived by stretcher from ED
[2024-04-04] MEDS: MELATONIN 5MG TABLET 5 MG PO (20:52)
[2024-04-04] MEDS: [UNRECOGNIZED DRUG - OTHER] PO (20:52)
[2024-04-04 21:41] LABS: Troponin I < 0.01 ng/ml (0.00-0.034)
[2024-04-05 04:00] VITALS: BP 111/69; PULSE 70; RESP 16; TEMP 36.6; O2SAT 96; BMI 19.4
[2024-04-05 07:56] VITALS: BP 116/69; PULSE 64; RESP 15; TEMP 36.3; O2SAT 88
[2024-04-05 08:00] VITALS: O2SAT 92
[2024-04-05 08:25] VITALS: BMI 19.4
--- NOTE | 2024-04-05 08:56 | HMH.PTEV ---
Physical Therapy Evaluation Rehab PT IP Evaluation Start: 04/05/24 08:39 Freq: ONCE Status: Active Protocol: Document 04/05/24 08:50 MAYNOR (Rec: 04/05/24 08:56 MAYNOR [id number]) Subjective/History History History Patient is a 73-year-old male who presents to the [facility] for evaluation of generalized weakness and dyspnea. Subjective Subjective Pt reports he lives with his in a 2-story home. Pt stays on the ground level. Pt has a ramped entrance. PLOF: Pt's nephew and help with all functional mobility. Pt's nephew performs the transfers to/from w/c. Nephew and both do the driving. Pt reports he has not walked in 3 weeks. When he was ambulating , pt used a RW with assistance . New diagnosis of cancer in past 12 No months? Rehab PT IP Eval Objective Appearance Patient Behavior Appropriate,Cooperative Patient Orientation Person,Situation Difficulty following instructions none Speech Pattern Clear Ambulation Patient Able to Ambulate No Balance Ability to Arise Unable Sitting Balance Leans or slides in chair Dynamic Sitting Balance Ability Fair Transfers Bed Transfer Ability Maximum x 2 (75% assist) Rehab PT IP prob,goals,plan Problems Date of Evaluation: 04/05/24 PT IP Problems Bed Mobility,Transfers,Gait, Balance,Self care,Safety Rehab Potential Rehab Potential Good Plan PT Intervention Plan Bed Mobility,Transfers,Gait, Balance,Safety,Therapeutic Exercise Other Intervention Plan 1-2 times PT Plan Frequency Daily Duration LOS Discharge Goals Bed Transfer Ability Moderate x 2 (50% assist) Sit to Stand Chair Transfer Ability Maximum x 2 (75% assist) Discharge Plan PT Discharge Plan Initial physical therapy evaluation performed. Patient presents below baseline at this time in functional mobility, transfers, and strength. Pt not safe to return home at this time d/t current level of functional mobility. PT recommending short-term rehabilitation stay upon d/c from [facility] to decrease caregiver burden and maximize safety. Pt would benefit from skilled PT while at [facility] to prevent further functional decline and maximize safety with mobility. Eval Complexity Eval Charge Codes 77147 - High Complexity PHYSICIAN CERTIFICATION: I certify the specified therapy services for Mitchell Trotter are required, authorized, and reviewed every 30 days.
[2024-04-05] MEDS: [UNRECOGNIZED DRUG - OTHER] PO ×2 (09:05→19:59)
[2024-04-05] MEDS: LEVOTHYROXINE 100MCG (0.1MG) TAB 100 MCG PO (09:05)
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
--- NOTE | 2024-04-05 09:07 | CA_ITS ---
APPROVED REPORT EXAM: Limited 2D Echocardiogram Floorman: Valerie Moreno CRT Ht: 5 ft 10 in Wt: 135lbs BSA: 1.77 BP: 108/70 mmHg Indications: sob, ascities, pleural effusions, poor acoustic windows, all images obtained subxiphoid. No apical or parasternal images. Very limited images. Pt up in bed and flat on back. M-Mode Dimensions RVDd 3.47 cm (0.9-2.6) LVDd 3.08 cm (3.5-5.7) LVDs 2.25 cm (3.5-5.7) IVSd 1.50 cm (0.6-1.1) PWd 1.36 cm (0.6-1.1) EF (Teich) 54.20% FS 26.90% EDV (Teich) 37.30 mL ESV (Teich) 17.10 mL Aortic Valve AI PHT 438.00 ms AO Peak GR. 4.00 mmHg Tricuspid Valve TR P. Velocity 222.00 cm/s RAP Estimate 10.00 mmHg RVSP 29.70 mmHg Other Information Study Quality: Technically Difficult. Technically limited study due to inability to position patient. Conclusion This is a limited TTE to evaluate for LV function. Limited windows were obtained due to significantly poor acoustic windows and inability to obtain views due to patient positioning. The left ventricle is normal in size. There is increased LV wall thickness. There is grossly normal LV systolic function. Regional wall motion cannot be estimated due to technically difficult study. LVEF is 50-55%. The right ventricle is not well-visualized. Moderate mitral annular calcification is present. The mitral valve leaflets are mildly thickened. Transmitral gradients could not be evaluated in the study. The aortic valve is mildly thickened. No hemodynamically significant aortic stenosis. Mild AI is present. The tricuspid valve leaflets are thin and pliable. At least moderate tricuspid regurgitation is present. RVSP is 25 mmHg + RA pressure. Pleural effusion and ascites are noted. No evidence of pericardial effusion in the available views. Electronically signed by : Kimberley Linn MD 04/06/2024 11:18:35
--- NOTE | 2024-04-05 09:15 | PC.NURSE ---
88% on RA documented. Pt. placed on 02 nc.
--- NOTE | 2024-04-05 10:03 | HMH.PHAINT1 ---
Pharmacy Intervention Comments: Home medication list verified using list from outpatient pharmacy and pt bottles
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
--- NOTE | 2024-04-05 11:16 | US_ITS ---
FINAL REPORT CLINICAL HISTORY: ASCITES -- PARACENTESIS -- LT SIDE-- SHARATH CAIN -- [id number] FINDINGS: ULTRASOUND-GUIDED PARACENTESIS HISTORY: Ascites ATTENDING PHYSICIAN: Dr. Dockery PHYSICIAN TAX CREDIT LEASING CONSULTANT: Sharath Payan PA-C FINDINGS: After informed consent was obtained and timeout procedure performed, fluid was localized in the left lower quadrant under ultrasound guidance and marked on the skin appropriately. The patient was then prepped and draped in the usual sterile fashion and the skin was anesthetized with 1% lidocaine. An ultrasound guided paracentesis was then performed using a Turkel needle. Approximately 3.5 liters of clear yellow fluid was removed. The patient tolerated the procedure well and there were no immediate complications. IMPRESSION: Ultrasound guided left lower quadrant paracentesis as discussed above. Films reviewed , interpreted and dictated by Dr. Dockery. Transcribed by Sharath Payan PA-C. Reviewed, Interpreted and Dictated by Esteban Dockery III, MD Transcribed by ANT Crenshaw Authenticated and [facility]
--- NOTE | 2024-04-05 12:48 | P.CONS_ITS ---
History of Present Illness *Admission Date: 04/04/24 *History of present illness: Mr. Trotter is a 73-year-old male who is admitted for failure to thrive. 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 At 1 point, he was weighing 400 pounds years ago. Over the last year, he has had a marked weight loss of 70 pounds and his present weight is close to 120 pounds. He states that his appetite is good but he fears eating because this leads to significant diarrhea. He has had watery diarrhea which he states occurs 2 or 3 times daily since his anal fistula surgery with Dr. Elkin German (colorectal surgery). This fistula was I believe [place] percutaneous to the right buttocks. He also had a right corneal ulcer and was told that this may be related to malnutrition. He has been referred to nephrology and endocrinology. He has poor oral intake. He was admitted for failure to thrive. The patient does report drinking over a pint of hard liquor daily but quit this 6 months ago. He has had some lower extremity edema. The patient did have a colonoscopy in October 2022 (Esteban Reaves) and had adenomatous polyps removed. On admission, the patient had labs showing no clear change in WBC with hemoglobin 12.8, hematocrit 38.0 and white blood cell 5.9. His platelet count was 276,000. Chemistry showed sodium 135, potassium 3.3, carbon oxide 20, lactate 1.2, magnesium 1.8. His liver chemistries (AST 45, ALT 50 and alkaline phosphatase 115) were normal. His serum protein 4.6 and albumin 2.1 were markedly declined. His abdominal CT scan showed large volume ascites bilaterally with pleural effusions and diffuse body wall edema and anasarca. The body of the report says small right lobe of the liver suggestive of cirrhosis but there was no splenomegaly or hepatomegaly. The patient reports no abdominal pain, hematochezia or melena. [facility] Disclaimer: The information contained in this section may have been updated after the patient was seen, as this information can be updated by other users. Medical History (Updated 04/05/24 @ 12:59 by Mohamud Ramey II, MD) Rectal fistula Hypothyroid Hemorrhoid Surgical History (Updated 04/05/24 @ 10:31 by Soumya Toledo APRN) H/O hernia repair H/O bariatric surgery History of colonoscopy Family History (Updated 04/05/24 @ 10:27 by Soumya Toledo APRN) Other Cancer Family history of diabetes mellitus type II Family history of hypertension Social History (Updated 04/04/24 @ 18:35 by Shikha Edward RN) Smoking Status: Former smoker second hand exposure: No alcohol intake: current alcohol intake frequency: 0-2 drinks per day substance use type: denies use current occupational status: retired Travel in the last 8 weeks: None household members: spouse housing: house current occupational exposures/hazards: No caffeine: Yes Review of Systems ENT Ears, Nose, Mouth, and Throat: Denies dizziness *Musculoskeletal Musculoskeletal: Reports abnormal gait (He has not walked in about 4 weeks) *Neurologic Neurologic: Reports abnormal gait (He has not walked in about 4 weeks), Denies confusion and Denies dizziness Psychiatric Psychiatric: Denies confusion Meds Home Medications and Allergies Home Medications ?Medication ?Instructions ?Recorded ?Confirmed ?Type doxycycline hyclate 100 mg capsule 100 mg PO BID 04/04/24 04/04/24 History levothyroxine 125 mcg tablet 125 mcg PO DAILY 04/05/24 04/05/24 History potassium chloride 20 mEq 20 meq PO BID 04/05/24 04/05/24 History tablet,extended release(part/cryst) New Prescriptions to Start Prescriptions: Allergies Allergy/AdvReac Type Severity Reaction Status Date / Time No Known Allergies Allergy Verified 03/28/24 14:34 Exam (Inpt) Vital signs and Labs for Last 24 Hours: Temp Pulse Resp BP Pulse Ox O2 Del Method O2 Flow Rate 97.4 F L 64 15 116/69 92 L Nasal Cannula 2 04/05/24 07:56 04/05/24 07:56 04/05/24 07:56 04/05/24 07:56 04/05/24 08:00 04/05/24 12:05 04/05/24 12:05 Laboratory Results - last 24 hr 04/04/24 14:40: WBC 5.9, RBC 3.98 L, Hgb 12.8 L, Hct 38.0 L, MCV 95.6 H, MCH 32.3 H, MCHC 33.8, RDW 14.9, Plt Count 276, MPV 8.6, Neut % (Auto) 87.8 H, Lymph % (Auto) 9.2 L, [place] % (Auto) 2.3, Eos % (Auto) 0.3, Baso % (Auto) 0.4, Neut # (Auto) 5.2, Lymph # (Auto) 0.5 L, [place] # (Auto) 0.1, Eos # (Auto) 0.0, Baso # (Auto) 0.0, Total Counted 100, Neutrophils % (Manual) 93 H, Lymphocytes % (Manual) 4 L, Monocytes % (Manual) 2, Eosinophils % (Manual) 1, Platelet Estimate Slight increase, RBC Morphology Normal, Sodium 135 L, Potassium 3.3 L, Chloride 109 H, Carbon Dioxide 20 L, Anion Gap 9.3, BUN 35 H, Creatinine 0.70, Estimated GFR 110, Est GFR ( Amer) 133, Glucose 71 L, Calcium 7.1 L, Phosphorus 3.8, Magnesium 1.8, Total Bilirubin 0.9, AST 45, ALT 50, Alkaline Phosphatase 115, Troponin I < 0.01, Total Protein 4.6 L, Albumin 2.1 L, Globulin 2.5, Albumin/Globulin Ratio 0.8 L 04/04/24 15:00: Lactate 1.2 04/04/24 21:08: Troponin I < 0.01 I & O for Labs for Last 24 Hours: Intake & Output 04/02/24 04/03/24 04/04/24 04/05/24 23:59 22:59 23:59 23:59 Intake Total 300 / 300 Output Total 150 / 150 Balance 150 / 150 Weight 119 lb 10.6 oz 135 lb 15.698 oz Constitutional: cachectic and chronically ill appearing Results Labs 04/04/24 14:40 04/04/24 14:40 Labs: Laboratory Results - last 24 hr 04/04/24 14:40: WBC 5.9, RBC 3.98 L, Hgb 12.8 L, Hct 38.0 L, MCV 95.6 H, MCH 32.3 H, MCHC 33.8, RDW 14.9, Plt Count 276, MPV 8.6, Neut % (Auto) 87.8 H, Lymph % (Auto) 9.2 L, [place] % (Auto) 2.3, Eos % (Auto) 0.3, Baso % (Auto) 0.4, Neut # (Auto) 5.2, Lymph # (Auto) 0.5 L, [place] # (Auto) 0.1, Eos # (Auto) 0.0, Baso # (Auto) 0.0, Total Counted 100, Neutrophils % (Manual) 93 H, Lymphocytes % (Manual) 4 L, Monocytes % (Manual) 2, Eosinophils % (Manual) 1, Platelet Estimate Slight increase, RBC Morphology Normal, Sodium 135 L, Potassium 3.3 L, Chloride 109 H, Carbon Dioxide 20 L, Anion Gap 9.3, BUN 35 H, Creatinine 0.70, Estimated GFR 110, Est GFR ( Amer) 133, Glucose 71 L, Calcium 7.1 L, Phosphorus 3.8, Magnesium 1.8, Total Bilirubin 0.9, AST 45, ALT 50, Alkaline Phosphatase 115, Troponin I < 0.01, Total Protein 4.6 L, Albumin 2.1 L, Globulin 2.5, Albumin/Globulin Ratio 0.8 L 04/04/24 15:00: Lactate 1.2 04/04/24 21:08: Troponin I < 0.01 Assessment and Plan *Assessment and plan (1) Ascites: Status: Acute Category: Medical Code(s): R18.8 - Other ascites (2) Anasarca: Status: Acute Category: Medical Code(s): R60.1 - Generalized edema (3) Adult failure to thrive: Status: Acute Category: Medical Code(s): R62.7 - Adult failure to thrive (4) Protein calorie malnutrition: Status: Acute Category: Medical Code(s): E46 - Unspecified protein-calorie malnutrition (5) Protein-calorie malnutrition, severe: Status: Acute Category: Medical Code(s): E43 - Unspecified severe protein-calorie malnutrition Plan 1. New onset of ascites. The fluid removed was serous and clear without turbidity or opalescence. I am not fully convinced that this is portal hypertension and cirrhosis. The patient does not have splenomegaly, hypersplenism or thrombocytopenia. He has normal liver chemistries. He does not have any other signs of cirrhosis other than smaller right lobe of liver. He also has had evaluation of the heart and I do not feel that this is right sided heart failure or venoocclusive disease/Budd-Chiari which often leads to hepatosplenomegaly. He did have heavier alcohol abuse. Certainly the ascitic fluid analysis will be very useful. 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 We do know that duodenal switch surgery is sometimes complicated by long-term protein calorie nutrition abnormalities. His recent urinalysis on 03/14 was negative for urine protein and this is not nephrotic syndrome with protein-losing nephropathy. This is likely not to be other etiologies (chylous ascites since fluid is clear or myxedema). I do wonder how this is associated with his recent fistula repair. Certainly his diarrhea worsened after the surgery. Most importantly, we will do ascitic fluid test to determine serum to ascites albumin gradient, cell count and differential, total protein concentration, LDH, amylase and smear. I am additionally going to send stool analysis/stool studies. Protein-losing gastroenteropathy's are characterized by excessive loss of serum proteins resulting in hypoproteinemia, edema and in some cases anasarca, pleural, pericardial effusions and ascites. There are whole list of conditions that are inflammatory (i.e. IBD or microbial colitis) or noninflammatory (celiac, amyloid, ministry years) or lymphangiectasia. The patient had prior EGD with Raj Babcock and colonoscopy with Esteban Reaves. We may need to repeat studies but I will start with stool testing.
[2024-04-05 14:09] LABS: Appearance,Body Fld. Normal; Source, Body Fld. Peritoneal Fluid; Volume,Body Fld. 3500 mL
[2024-04-05 14:44] LABS: RBC,Body Fluid < 10 cells/uL (< 10 X 10^3); TNC,Body Fluid 21 cells/uL (< 1000)
[2024-04-05 14:48] LABS: Mononuclear WBCs,Body Fluid 85 %; Polynuclear WBC,Body Fluid 15 %
--- NOTE | 2024-04-05 15:48 | PC.NURSE ---
iv leaking and removed.
[2024-04-05 16:00] VITALS: BP 114/68; PULSE 77; RESP 16; TEMP 36.2; O2SAT 91
--- NOTE | 2024-04-05 16:06 | PC.NURSE ---
Aox 4, turn every two hours, RA this am was 88 so 02-2L placed with 02 now in the 90's , purewick in place, PT and OT consulted, GI consulted, Paracentesis done on left flank with reported 3,500 ml's removed, L Flank band-aid in place.
[2024-04-05 17:35] LABS: Adenovirus F 40/41, stool Not Detected (NotDetected); Astrovirus Not Detected (NotDetected); Campylobacter Not Detected (NotDetected); Clostridium Difficile A/B, PCR Not Detected (NotDetected); Cryptosporidium Not Detected (NotDetected); Cyclospora Cayetanesis Not Detected (NotDetected); Entamoeba histolytica Not Detected (NotDetected); Enteroaggregative E coli Not Detected (NotDetected); Enteropathogenic E coli Not Detected (NotDetected); Enterotoxigenic E coli Not Detected (NotDetected); Giardia lamblia Not Detected (NotDetected); Norovirus Not Detected (NotDetected); Plesimonas Shigalloides, PCR Not Detected (NotDetected); Rotavirus A Not Detected (NotDetected); Salmonella, PCR Not Detected (NotDetected); Sapovirus Not Detected (NotDetected); Shiga-like toxin E coli Not Detected (NotDetected); Shigella Enterovasive E coli Not Detected (NotDetected); Vibrio Cholerae Not Detected (NotDetected); Vibrio, PCR Not Detected (NotDetected); Yersinia Entercolitica, PCR Not Detected (NotDetected)
[2024-04-05 18:02] LABS: Occult Blood,Stool Negative (Negative)
[2024-04-05 19:58] VITALS: O2SAT 93
[2024-04-05] MEDS: MELATONIN 5MG TABLET 5 MG PO (19:58)
[2024-04-05 20:00] VITALS: BP 129/68; PULSE 85; RESP 18; TEMP 36.7; O2SAT 93
[2024-04-06] VITALS (7 sets, daily range): BP systolic 90–103; BP diastolic 45–81; PULSE 60–95; RESP 16–18; TEMP 35.9–36.8; O2SAT 94–97; BMI 18.9
[2024-04-06] MEDS: LEVOTHYROXINE 125 MCG PO (06:03)
[2024-04-06 07:43] LABS: Alanine Aminotransferase 55 U/L (12-78); Albumin Level 1.8 g/dl (3.5-5.0); Albumin/Globulin Ratio 0.8 (1.1-1.8); Alkaline Phosphatase 97 U/L (38-126); Anion Gap 7.7 mEq/L (5-15); Aspartate Amino Transferase 42 U/L (17-59); Bilirubin,Total 0.7 mg/dl (0.2-1.3); Blood Urea Nitrogen 33 mg/dl (9-20); Carbon Dioxide 19 mmol/L (22.0-30.0); Chloride 112 mmol/L (98-107); Creatinine Clearance Estimated 55 mL/min (50-200); Estimated Glomerular Filt Rate 110 ml/min (>60); GFR (African American) 133 ML/MIN (>60); Globulin 2.4 g/dL (1.3-3.2); Glucose 79 mg/dl (74-100); Magnesium 1.6 mg/dl (1.6-2.3); Sodium 136 mmol/L (136-145); Total Protein,Serum 4.2 g/dl (6.3-8.2)
[2024-04-06 08:03] LABS: Basophils % 0.1 % (0.1-2.0); Eosinophils % 0.2 % (0.1-12.0); Hematocrit 38.1 % (42.0-52.0); Hemoglobin 13.1 g/dL (14.1-18.0); Lymphocytes # 0.3 K/mm3 (0.7-4.5); Lymphocytes % 7.4 % (10-50); Mean Corpuscular HGB Conc 34.4 g/dL (31.8-35.4); Mean Corpuscular Hemoglobin 33.7 pg (27.0-31.2); Mean Corpuscular Volume 98.1 fl (80-94); Mean Platelet Volume 8.7 fl (7.4-10.4); Monocytes # 0.1 K/mm3 (0.1-1.0); Monocytes % 3.1 % (1.7-9.3); Neutrophils # 3.8 K/mm3 (1.8-7.8); Neutrophils % 89.3 % (37.0-80.0); Platelet Count 214 K/mm3 (142-424); Red Blood Count 3.89 M/mm3 (4.60-6.20); Red Cell Distribution Width 14.5 % (11.5-17.5); White Blood Count 4.3 K/mm3 (4.8-10.8)
[2024-04-06 08:08] LABS: MANUAL DIFFERENTIAL MANUAL DIFFERENTIAL (MANUAL DIFF)
--- NOTE | 2024-04-06 08:19 | P.PN_ITS ---
Subjective *Date: 04/06/24 *Time: 08:56 Interval history: Patient states he is still very weak this am. PT came and worked with him yesterday and he states it wore him out. He is still unable to move his legs but can move his feet. He denies any pain. He has not eaten yet this am but was finally able to sleep. He continues with diarrhea. Medical Exam Vital signs and Labs for Last 24 Hours: Vital Signs Temp Pulse Resp BP BP Pulse Ox O2 Del Method 04/06/24 07:58 97.5 F L 74 18 97/81 L 96 Room Air 04/06/24 06:46 Room Air 04/06/24 04:59 Room Air 04/06/24 04:35 99/50 L 04/06/24 04:00 97.6 F 95 H 18 90/45 L 97 Room Air 04/06/24 02:57 Nasal Cannula 04/06/24 01:00 Nasal Cannula 04/05/24 22:51 Nasal Cannula 04/05/24 21:00 Nasal Cannula 04/05/24 20:00 98.1 F 85 18 129/68 93 L Nasal Cannula 04/05/24 19:58 93 L Nasal Cannula 04/05/24 17:29 Nasal Cannula 04/05/24 16:00 97.2 F L 77 16 114/68 91 L Nasal Cannula 04/05/24 15:53 Nasal Cannula 04/05/24 13:25 Nasal Cannula 04/05/24 12:05 Nasal Cannula 04/05/24 10:14 Nasal Cannula 04/05/24 08:51 Nasal Cannula O2 Flow Rate 04/06/24 07:58 04/06/24 06:46 04/06/24 04:59 04/06/24 04:35 04/06/24 04:00 04/06/24 02:57 2 04/06/24 01:00 2 04/05/24 22:51 2 04/05/24 21:00 2 04/05/24 20:00 2 04/05/24 19:58 2 04/05/24 17:29 2 04/05/24 16:00 3 04/05/24 15:53 2 04/05/24 13:25 2 04/05/24 12:05 2 04/05/24 10:14 2 04/05/24 08:51 2 Intake and Output 04/05/24 04/06/24 04/06/24 19:59 03:59 11:59 Intake Total 360 / 360 Output Total 300 / 300 0 / 300 0 / 300 Balance 60 / 60 0 / 60 0 / 60 Intake: Intake, Oral Amount 360 / 360 Output: Output, Urine Amount 300 / 300 0 / 300 0 / 300 Other: Number of Voids 0 Number of Unmeasured Voids 1 1 1 Number of Bowel Movements 1 3 2 Weight 132 lb 8 oz Patient Weight 04/06/24 11:59 Weight 132 lb 8 oz Laboratory Results - last 24 hr 04/05/24 11:50: Fluid Source Peritoneal fluid, Fluid Volume 3500, Fluid Appearance Normal, Fluid RBC (Auto) < 10, Fld Tot Nucleated Cell 21, Fld Polynuclear WBCs % 15, Fld Mononuclear WBCs % 85 04/05/24 14:01: Stl Aeromonas (PCR) Not detected, Stl C. cayetanensis PCR Not detected, Stool Rotavirus (PCR) Not detected, Stl Adenov F 40/41 PCR Not det ected, Stool Astrovirus (PCR) Not detected, Stool Campylobacter PCR Not detected, Stl C.difficile Tox PCR Not detected, Stool Cryptosporidium PCR Not detected, Stl E.coli Shiga Tox PCR Not detected, Stool E coli O157 PCR Not detected, Stl Enterotoxigenic E PCR Not detected, Stool EPEC (PCR) Not detected, Stool EAEC (PCR) Not detected, Stl E. histolytica PCR Not detected, Stool Giardia Lamblia PCR Not detected, Stool Salmonella PCR Not detected, Stool Sapovirus (PCR) Not detected, Stl P. shigelloides PCR Not detected, Stl Shigella/EIEC PCR Not detected, St Y.enterocolitica PCR Not detected, Stool Vibrio (PCR) Not detected, Stl Vibrio cholerae PCR Not detected, Stl Norovirus GI/GII PCR Not detected 04/05/24 17:10: Stool Occult Blood Negative 04/06/24 07:01: WBC 4.3 L D, RBC 3.89 L, Hgb 13.1 L, Hct 38.1 L, MCV 98.1 H, MCH 33.7 H, MCHC 34.4, RDW 14.5, Plt Count 214, MPV 8.7, Neut % (Auto) 89.3 H, Lymph % (Auto) 7.4 L, [place] % (Auto) 3.1, Eos % (Auto) 0.2, Baso % (Auto) 0.1, Neut # (Auto) 3.8, Lymph # (Auto) 0.3 L, [place] # (Auto) 0.1, Eos # (Auto) 0.0, Baso # (Auto) 0.0 I & O for Labs for Last 24 Hours: Intake & Output 04/03/24 04/04/24 04/05/24 04/06/24 10:59 11:59 11:59 11:59 Intake Total 300 / 300 360 / 360 Output Total 150 / 150 300 / 300 Balance 150 / 150 60 / 60 Weight 135 lb 15.698 oz 132 lb 8 oz Microbiology Reports for the Last 24 Hours: Microbiology 04/05/24 11:50 Peritoneal Fluid Gram Stain - Preliminary 04/05/24 14:01 Stool WBC Smear - Final Constitutional: Present no acute distress Respiratory: Present CTA bilaterally Cardiac: Present Reg Rate and Rhythm GI: Present soft and normal bowel sounds; Absent distention or tenderness Extremities: Absent edema Skin: Present intact Neuro: Present alert, awake and oriented x 3 Assessment and Plan *Assessment and plan (1) Protein-calorie malnutrition, severe: Status: Acute Category: Medical Code(s): E43 - Unspecified severe protein-calorie malnutrition (2) Ascites: Status: Acute Category: Medical Code(s): R18.8 - Other ascites (3) Bilateral pleural effusion: Status: Acute Category: Medical Code(s): J90 - Pleural effusion, not elsewhere classified (4) Anasarca: Status: Acute Category: Medical Code(s): R60.1 - Generalized edema (5) Trochanteric bursitis, left hip: Status: Acute Category: Medical Code(s): M70.62 - Trochanteric bursitis, left hip (6) Osteoarthritis of left knee: Status: Acute Qualifiers: Osteoarthritis type: primary Qualified Code(s): M17.12 - Unilateral primary osteoarthritis, left knee Category: Medical Code(s): M17.12 - Unilateral primary osteoarthritis, left knee (7) Adult failure to thrive: Status: Acute Category: Medical Code(s): R62.7 - Adult failure to thrive (8) Corneal ulcer of right eye: Status: Acute Category: Medical Code(s): H16.001 - Unspecified corneal ulcer, right eye (9) Weakness: Status: Acute Category: Medical Code(s): R53.1 - Weakness (10) Hypokalemia: Status: Acute Category: Medical Code(s): E87.6 - Hypokalemia Plan GI is doing an ascitic fluid test and also stool studies. Patient still cannot eat without having diarrhea. Echo pending. Potassium is low. Will need runs of potassium today. Will discuss further care with Dr. Valero. Dr. Valero entry - Saw patient, agree with above note.
[2024-04-06 08:25] LABS: Potassium 2.7 mmoL/L (3.5-5.1)
[2024-04-06 08:49] LABS: Lymphocytes % 7 % (10-50); Monocytes % 1 % (2-9); Neutrophils % 92 % (42-76); Platelet Estimate Normal; RBC Morphology Normal; Total Cells Counted 100
[2024-04-06] MEDS: KCl 20mEq/100ml 100 ML 50 MEQ IV ×3 (09:17→16:32)
[2024-04-06] MEDS: [UNRECOGNIZED DRUG - OTHER] PO ×2 (09:17→21:19)
--- OUTSIDE RECORDS SUMMARY | 2024-04-06 10:11 | XMS_ITS ---
Author Organization [facility] Address [address] [facility] [address] [place] [id number] Care Team Providers Care Storage Garage Manager Name Role Phone Harsha Valero Primary Care Provider [phone] Romero Duenas [phone] REASON FOR VISIT message Encounters Encounter Location Date Provider Diagnosis [facility] [address] [facility] [address] [place] [id number] 04/04/2024 Harsha Valero PLAN OF TREATMENT No Information
--- OUTSIDE RECORDS SUMMARY | 2024-04-06 10:11 | XMS_ITS | Patient Health Record ---
Author Organization [facility] Address [address] [place] Kim [id number] Care Team Providers Care Insemination Worker Name Role Phone Harsha Valero Primary Care Provider Romero Duenas [phone] ALLERGIES No Known Allergies RESULTS Component Value Reference Range Notes H-Magnesium Reviewed date:03/07/2024 03:12:47 PM Interpretation: Performing Lab: Notes/Report: MG 1.4 1.6-2.3 mg/dl Delta: 1.2 on 03/04/24-1330 H-Magnesium Reviewed date:03/23/2024 01:56:13 PM Interpretation:1.5 Performing Lab: Notes/Report: MG 1.5 1.6-2.3 mg/dl H-Magnesium Reviewed date:04/01/2024 03:45:02 PM Interpretation: Performing Lab: Notes/Report: MG 1.6 1.6-2.3 mg/dl H-CBC (Not yet reviewed by chao moreno) Interpretation: Performing Lab: Notes/Report: WBC 4.3 4.8-10.8 K/mm3 Delta: 5.9 on 04/04/24-1440 RBC 3.89 4.60-6.20 M/mm3 HGB 13.1 14.1-18.0 g/dL HCT 38.1 42.0-52.0 % MCV 98.1 80-94 fl MCH 33.7 27.0-31.2 pg MCHC 34.4 31.8-35.4 g/dL RDW 14.5 11.5-17.5 % PLT 214 142-424 K/mm3 MPV 8.7 7.4-10.4 fl NE% 89.3 37.0-80.0 % LY% 7.4 10-50 % MO% 3.1 1.7-9.3 % EO% 0.2 0.1-12.0 % BA% 0.1 0.1-2.0 % NE# 3.8 1.8-7.8 K/mm3 LY# 0.3 0.7-4.5 K/mm3 MO# 0.1 0.1-1.0 K/mm3 EO# 0.0 0.0-0.4 K/mm3 BA# 0.0 0-0.2 K/mm3 H-DIFF (Not yet reviewed by provider) Interpretation: Performing Lab: Notes/Report: RADHA MANUAL DIFFERENTIAL MANUAL DIFF TCC 100 NEUT%M 92 42-76 % LYMPH%M 7 10-50 % MONO%M 1 2-9 % PLTE Normal RM Normal H-CMP (Not yet reviewed by chao moreno) Interpretation: Performing Lab: Notes/Report: NA 136 136-145 mmol/L K 2.7 3.5-5.1 mmoL/L CRITICAL RESULT Results called and read back/verified to: KATHERINE HERNANDEZ on 04/06/24 at 0823 By Kae Iniguez CAGE MAKER CL 112 98-107 mmol/L CO2 19 22.0-30.0 mmol/L GAP 7.7 5-15 mEq/L BUN 33 9-20 mg/dl CREATT 0.70 0.66-1.25 mg/dl CRCLE 55 50-200 mL/min GFRAA 133 >60 ML/MIN EGFR 110 >60 ml/min GLU 79 74-100 mg/dl CA 7.0 8.4-10.2 mg/dl BILIT 0.7 0.2-1.3 mg/dl AST 42 17-59 U/L ALT 55 12-78 U/L TP 4.2 6.3-8.2 g/dl ALB 1.8 3.5-5.0 g/dl GLOB 2.4 1.3-3.2 g/dL AGRATIO 0.8 1.1-1.8 ALP 97 38-126 U/L H-Magnesium (Not yet reviewe d by provider) Interpretation: Performing Lab: Notes/Report: MG 1.6 1.6-2.3 mg/dl Delta: 1.8 on 04/04/24-1440 Potassium Reviewed date:03/07/2024 03:19:49 PM Interpretation: Performing Lab: Notes/Report: potassium chloride sodium glucose Bun/creatinine H-Creatinine Urine, random Reviewed date:07/30/2023 08:35:35 AM Interpretation:Normal Performing Lab: Notes/Report: UCREAT 67 Not Estab. mg/dL Random urine reference range not established. 24 hour urine samples recommended. H-MICROALB Reviewed date:07/30/2023 08:35:35 AM Interpretation:Normal Performing Lab: Notes/Report: MICROALB < 6.000 0-16.7 mg/L H-UA Reviewed date:03/16/2024 09:24:54 AM Interpretation:trace gluc, 1+ bacteria Performing Lab: Notes/Report: UCOL YELLOW Yellow UAPP CLEAR Clear UPH 6.0 5.0-8.5 USG >= 1.030 1.005-1.030 UPRO Negative Negative UGLU TRACE Negative UKET Negative Negative UBLD Negative Negative UNIT Negative Negative UBIL Negative Negative UURO 0.2 0.2 EU/dl ULEU Negative Negative UMICU URINE MICROSCOPIC MICROSCOPIC URBC 10-20 0-3 #/hpf UWBC 3-5 0-3 #/hpf USQEPI Occasional 0-5 #/hpf UBACT 1+ NONE /lpf H-Creatine Kinase Reviewed date:03/07/2024 09:43:35 AM Interpretation: Normal Performing Lab: Notes/Report: CK 144 55-170 U/L H-CRP Reviewed date:03/07/2024 09:43:35 AM Interpretation: Normal Performing Lab: Notes/Report: CRP < 0.3 0-4 mg/L H-T4 free Reviewed date:03/07/2024 09:43:35 AM Interpretation: Normal Performing Lab: Notes/Report: T4F 0.78 0.78-2.19 ng/dl H-VITAMIN B12 Reviewed date:03/07/2024 09:43:35 AM Interpretation:>1000 Performing Lab: Notes/Report: VITB12 > 1000 239-931 pg/mL H-PHOS Reviewed date:03/07/2024 09:43:35 AM Interpretation: Normal Performing Lab: Notes/Report: PHOS 2.7 2.5-4.5 mg/dl H-CMP Reviewed date:03/07/2024 09:43:35 AM Interpretation:K+ 2.9, cl 115, co2- 19, bun 23, Cr 0.5, Ca 7.5, alt 83, prot 4.7, alb 2.5 Performing Lab: Notes/Report: NA 138 136-145 mmol/L K 2.9 3.5-5.1 mmoL/L CRITICAL RESULT Results called and read back/verified to: KANDACE on 03/04/24 at 1429 By Jannette Sparks CL 115 98-107 mmol/L CO2 19 22.0-30.0 mmol/L GAP 6.9 5-15 mEq/L BUN 23 9-20 mg/dl CREATT 0.50 0.66-1.25 mg/dl CRCLE 49 50-200 mL/min GFRAA 197 >60 ML/MIN EGFR 163 >60 ml/min GLU 80 74-100 mg/dl CA 7.5 8.4-10.2 mg/dl BILIT 1.0 0.2-1.3 mg/dl AST 53 17-59 U/L ALT 83 12-78 U/L TP 4.7 6.3-8.2 g/dl Delta: 6.4 on 10/14/21-9 ALB 2.5 3.5-5.0 g/dl GLOB 2.2 1.3-3.2 g/dL AGRATIO 1.1 1.1-1.8 ALP 76 38-126 U/L H-CBC Reviewed date:03/07/2024 09:43:35 AM Interpretation:rbc 3.44, hgb 11.4, hct 35, mcv 102, mch 33 Performing Lab: Notes/Report: WBC 7.5 4.8-10.8 K/mm3 RBC 3.44 4.60-6.20 M/mm3 HGB 11.4 14.1-18.0 g/dL HCT 35.0 42.0-52.0 % MCV 101.9 80-94 fl MCH 33.2 27.0-31.2 pg MCHC 32.6 31.8-35.4 g/dL RDW 14.8 11.5-17.5 % PLT 182 142-424 K/mm3 MPV 9.5 7.4-10.4 fl NE% 87.3 37.0-80.0 % LY% 7.4 10-50 % MO% 4.8 1.7-9.3 % EO% 0.4 0.1-12.0 % BA% 0.1 0.1-2.0 % NE# 6.6 1.8-7.8 K/mm3 LY# 0.6 0.7-4.5 K/mm3 MO# 0.4 0.1-1.0 K/mm3 EO# 0.0 0.0-0.4 K/mm3 BA# 0.0 0-0.2 K/mm3 H-TSH Reviewed date:03/07/2024 09:43:35 AM Interpretation: Normal Performing Lab: Notes/Report: TSH 2.85 0.465-4.68 uIU/mL H-Magnesium Reviewed date:03/07/2024 10:30:40 AM Interpretation: Performing Lab: Notes/Report: MG H-PSA Reviewed date:07/30/2023 08:35:35 AM Interpretation:Normal Performing Lab: Notes/Report: PSASC 0.5 0.0-4.0 ng/ml H-T4 free Reviewed date:07/30/2023 08:35:35 AM Interpretation:Normal Performing Lab: Notes/Report: T4F 0.86 0.78-2.19 ng/dl H-VITAMIN B12 Reviewed date:07/30/2023 08:35:35 AM Interpretation:Vit B12 959 Performing Lab: Notes/Report: VITB12 959 239-931 pg/mL H-Magnesium Reviewed date:07/30/2023 08:35:35 AM Interpretation:Mg 1.1 Performing Lab: Notes/Report: MG 1.1 1.6-2.3 mg/dl H-Lipid Panel Reviewed date:07/30/2023 08:35:35 AM Interpretation:Chol 78, Dldl <30.00 Performing Lab: Notes/Report: Patient Fasting? N TRIG 42 30-150 mg/dl CHOL 78 140-200 mg/dl DLDL < 30.00 100-129 mg/dL VLDL 8 0-40 mg/dL HDL 50 40-60 mg/dl CHLHDL 1.6 1-3.5 H-Microalbumine/Creatinine Reviewed date:07/31/2023 03:54:42 PM Interpretation: Performing Lab: Notes/Report: MICROALB UCREAT UCREAT MALBCREAT H-BMP Reviewed date:07/30/2023 08:35:35 AM Interpretation:Cl 109, Co2 21 Performing Lab: Notes/Report: NA 139 136-145 mmol/L K 4.3 3.5-5.1 mmoL/L CL 109 98-107 mmol/L CO2 21 22.0-30.0 mmol/L GAP 13.3 5-15 mEq/L BUN 14 9-20 mg/dl CREATT 0.70 0.66-1.25 mg/dl GFRAA 133 >60 ML/MIN EGFR 110 >60 ml/min GLU 93 74-100 mg/dl CA 8.4 8.4-10.2 mg/dl H-TSH Reviewed date:07/30/2023 08:35:35 AM Interpretation:Tsh 7.03 Performing Lab: Notes/Report: TSH 7.03 0.465-4.68 uIU/mL P-TSH Reviewed date:12/25/2023 09:40:17 AM Interpretation:8.07 Performing Lab: Notes/Report: CLIA: [id number] Moisés Cunningham MD, Control Specialist [address] [place] [address] , [place] [address] Test performed by [facility] TSH 8.07 0.43-5.25 mU/L P-Magnesium Reviewed date:12/25/2023 09:40:17 AM Interpretation:1 Performing Lab: Notes/Report: Test performed by [facility] [address] [place] [address] , [facility] [place] [address] Moisés Cunningham MD, Control Specialist CLIA: [id number] Magnesium 1.0 1.6-2.4 mg/dL P-T4 Free (thyroxine) Reviewed date:12/25/2023 09:40:17 AM Interpretation:Normal Performing Lab: Notes/Report: Test performed by [facility] [address] [facility] , [address], [place] [address] Moisés Cunningham MD, Control Specialist CLIA: [id number] Thyroxine Free (free T4) 0.99 0.86-1.76 ng/dL CBC Fingerstick (in house) Reviewed date:12/25/2023 09:40:17 AM Interpretation: Performing Lab: Notes/Report: wbc 4.4 3.5 - 10 lym 18.3 15 - 50 mid 6.1 2 - 15 gran 75.6 35 - 80 rbc 2.66 3.5 - 5.5 hgb 8.7 11.5 - 16.5 hct 26.4 35 - 55 mcv 99.3 75 - 100 mch 32.8 25 - 35 mchc 33.0 31 - 38 plat 241 100 - 400 H-Magnesium Reviewed date:03/28/2024 01:04:35 PM Interpretation:1.6 Performing Lab: Notes/Report: MG 1.6 1.6-2.3 mg/dl Delta: 1.4 on 03/25/24-1233 H-Magnesium Reviewed date:03/28/2024 09:36:04 AM Interpretation:1.4 Performing Lab: Notes/Report: MG 1.4 1.6-2.3 mg/dl H-Magnesium Reviewed date:03/18/2024 03:59:14 PM Interpretation:1.2 Performing Lab: Notes/Report: MG 1.2 1.6-2.3 mg/dl H-Magnesium Reviewed date:03/14/2024 03:05:27 PM Interpretation: Performing Lab: Notes/Report: MG 1.4 1.6-2.3 mg/dl H-Magnesium Reviewed date:03/14/2024 01:21:18 PM Interpretation:1.4 Performing Lab: Notes/Report: MG 1.4 1.6-2.3 mg/dl H-Potassium Reviewed date:03/07/2024 03:12:47 PM Interpretation: Performing Lab: Notes/Report: K 3.0 3.5-5.1 mmoL/L CRITICAL RESULT Results called and read back/verified to: SUGEY SIFUENTES RN on 03/07/24 at 1436 By Anamaria Snider MLT H-Magnesium Reviewed date:03/07/2024 09:43:35 AM Interpretation:1.2 Performing Lab: Notes/Report: MG 1.2 1.6-2.3 mg/dl H-DIFF Reviewed date:03/07/2024 09:43:35 AM Interpretation: Performing Lab: Notes/Report: MDIFF MANUAL DIFFERENTIAL MANUAL DIFF TCC 100 NEUT%M 91 42-76 % LYMPH%M 8 10-50 % MONO%M 1 2-9 % PLTE Normal POIK 1+ ANISO 1+ H-Magnesium Reviewed date:02/29/2024 01:57:07 PM Interpretation:1.4 Performing Lab: Notes/Report: MG 1.4 1.6-2.3 mg/dl H-Magnesium Reviewed date:02/29/2024 11:14:56 AM Interpretation:1.3 Performing Lab: Notes/Report: MG 1.3 1.6-2.3 mg/dl H-Magnesium Reviewed date:02/22/2024 02:50:11 PM Interpretation:0.8 Performing Lab: Notes/Report: MG 0.8 1.6-2.3 mg/dl CRITICAL RESULT Results called and read back/verified to:JOHANNA on 02/22/24 at 1343 By Nury Baez MT H-Magnesium Reviewed date:02/15/2024 04:20:43 PM Interpretation:1.0 Performing Lab: Notes/Report: MG 1.0 1.6-2.3 mg/dl CRITICAL RESULT Results called and read back/verified to: CONNIE LEGER RN on 02/15/24 at 1502 By Anamaria Snider MLT H-Magnesium Reviewed date:02/08/2024 03:19:07 PM Interpretation:1.2 Performing Lab: Notes/Report: MG 1.2 1.6-2.3 mg/dl P-TSH Reviewed date:10/21/2023 04:50:34 PM Interpretation:11.4 Performing Lab: Notes/Report: CLIA: [id number] Moisés Cunningham MD, Control Specialist [address] [place] [address] , [address], [place] [address] Test performed by [facility] TSH 11.40 0.43-5.25 mU/L P-Magnesium Reviewed date:10/21/2023 04:50:34 PM Interpretation:1.3 Performing Lab: Notes/Report: [facility] , [place] [address] Moisés Cunningham MD, Control Specialist CLIA: [id number] Magnesium 1.3 1.6-2.4 mg/dL P-T4 Free (thyroxine) Reviewed date:10/21/2023 04:50:34 PM Interpretation:Normal Performing Lab: Notes/Report: Test performed by [facility] [address] , [place] [address] Moisés Cunningham MD, Control Specialist CLIA: [id number] Thyroxine Free (free T4) 0.89 0.86-1.76 ng/dL P-Basic Metabolic Panel (BMP ) Reviewed date:10/21/2023 04:50:34 PM Interpretation:Cr 0.55, Ca 8.5 Performing Lab: Notes/Report: Test performed by [facility] [address] , [place] [address] Moisés Cunningham MD, Control Specialist CLIA: [id number] Sodium 138 135-145 mEq/L Potassium 4.3 3.5-5.3 mEq/L Chloride 107 97-108 mEq/L CO2 22 22-32 mEq/L Glucose 95 65-99 mg/dL BUN 19 8-23 mg/dL Creatinine 0.55 0.70-1.30 mg/dL Calcium 8.5 8.6-10.4 mg/dL eGFR by Creatinine 104 >59 mL/min/1.73m2 REASON FOR REFERRAL No Information MEDICATIONS Medication SIG (Take, Route, Frequency, Duration) Notes Start Date End Date Status Magnesium Glycinate 120 MG 1 cap(s) Oral ly Two times a day 01/26/2024 Active Levothyroxine Sodium 125 MCG TAKE 1 TABL ET BY MOUTH DAILY IN THE MORNING ON AN EMPTY STOMACH for 30 Active Doxycycline 40 MG 1 capsule in the mor peyton on an empty stomach Orally Once a day for 30 day(s) Active Lasix 40 MG 1 tablet Orally Once a day for 30 days Active Calcium 600+D3 600-20 MG-MCG 1 tab(s) or ally 2 times a day 10/15/2021 Active Potassium Chloride 20 MEQ/15ML (10%) TAKE 15 ML BY MOUTH TWICE DAILY WITH FOOD for 90 Active Celecoxib 200 MG 1 capsule with food Orally Once a day for 30 day(s) Active Vitamin B 12 500 MCG 1 tablet Orally Onc e a day for 30 day(s) Active Ibuprofen 600 MG 1 tab(s) orally once daily as needed 12/20/2021 Active Potassium Chloride Yolanda ER 20 MEQ TAKE 1 TABLET BY MOUTH TWICE DAILY WITH FOOD. TO MAKE SLURRY, DISSOLVE 1 TABLET IN 8 OUNCES OF WATER. for 90 Active Sildenafil Citrate 20 MG 1 to 5 tablet O rally Once a day as needed 08/03/2023 Active IMMUNIZATIONS Vaccine Route Administration Date Status Comme nts COVID 19 Moderna Unknown 07/11/2020 Administered COVID 19 Moderna Unknown 08/08/2020 Administered COVID 19 Moderna Unknown 04/05/2021 Administered COVID 19 Moderna Unknown 11/21/2021 Administered DT, 7 YEARS OR OLDER Unknown 08/03/1996 Administered Fluzone High Dose (65yr and older) IM Intramuscular 2014 Administered Fluzone High Dose (65yr and older) IM Intramuscular 03/22/2015 Administered Fluzone High Dose (65yr and older) IM Intramuscular 04/14/2016 Administered Fluzone High Dose (65yr and older) IM Intramuscular 02/12/2017 Administered Fluzone High Dose (65yr and older) IM Intramuscular 03/22/2018 Administered Fluzone High Dose (65yr and older) IM Intramuscular 03/17/2019 Administered Fluzone High Dose (65yr and older) IM Intramuscular 02/21/2020 Administered Fluzone High Dose (65yr and older) IM Intramuscular 04/18/2021 Administered Fluzone High Dose (65yr and older) Unknown 03/13/2022 Administered PNEUMOVAX 23 VACCINE IM Intramuscular 03/22/2018 Administe red Prevnar (PCV13) IM Intramuscular 03/22/2015 Administered Prevnar (PCV20) IM Intramuscular 07/24/2022 Administered xFlu shot-36 months and older IM Intramuscular 05/06/2006 Administered xFlu shot-36 months and older IM Intramuscular 04/23/2007 Administered xFlu shot-36 months and older IM Intramuscular 04/25/2008 Administered xFlu shot-36 months and older IM Intramuscular 05/19/2009 Administered xFlu shot-36 months and older IM Intramuscular 03/07/2011 Administered xFluzone (6mos and older)-trivalent IM Intramuscular 03/16/2010 Administered xFluzone (6mos and older)-trivalent IM Intramuscular 04/06/2012 Administered xFluzone Intradermal (18-64yrs)-trivalent ID Intradermal 03/16/2013 Administered SOCIAL HISTORY Sex Assigned At : Social History Observation Description Sex Assigned At Unknown PROBLEMS Problem Type ICD Code Onset Dates Problem Status W/U Status Risk SNOMED Code Notes Problem Vitamin B12 deficiency (266.2) Active confirmed Vitamin B12 deficiency (376169923) Problem Rhinitis (472.0) Active confirmed Rhini tis (23732325) Problem Hypothyroidism NOS (244.9) Active confirmed Hypothyroidism (89736780) Problem Kidney stone (592.0) Active confirmed Kidney stone (76452147) Problem Hypothyroidism, unspecified (E03.9) Active confirmed Hypothyroidism (49599860) Problem Hypokalemia (E87.6) Active confirmed 09375394 Problem Hypothyroidism (acquired) (E03.9) Active confirmed 304039806 Problem Vitamin B12 deficiency (E53.8) Active confirmed 354313671 Problem Essential hypertension (I10) Active confirmed 95651951 Problem Hypocalcemia (E83.51) Active confirmed 2129930 Problem Hypomagnesemia (E83.42) Active confirmed 494402687 Problem Other chronic pain (G89.29) Active confirmed 37128135 Problem Acquired hypothyroidism (E03.9) Active confirmed 245684096 Problem Hypothyroidism (E03.9) Active confirmed Hypothyroidism (96218439) Problem Erectile dysfunction, unspecified erectile dysfunction type (N52.9) Active confirmed 527362166 Problem ETOH abuse (F10.10) Active confirmed Ethanol abuse (49474991) Problem Bursitis of left deltoid (M75.52) Active confirmed 750122332 Problem Benign prostatic hyperplasia without lower urinary tract symptoms (N40.0) Active confirmed 758669226 VITAL SIGNS Heart Rate 64 /min 12/28/2023 Blood pressure diastolic 64 mm Hg 12/28/2023 Height 70.5 in 12/28/2023 Blood pressure systolic 112 mm Hg 12/28/2023 Weight 119.8 lbs 12/28/2023 BMI 16.94 kg/m2 12/28/2023 Encounters Encounter Location Date Provider Diagnosis [facility] [address] [facility] [address] [place] [id number] 07/27/2023 Harsha Cohoes Hypothyroidism E03.9 [facility] [address] [facility] [address] [place] [id number] 07/27/2023 Harsha Cohoes Hypothyroidism (acqu ired) E03.9 ; Essential hypertension I10 ; Hypokalemia E87.6 ; Vitamin B12 deficiency E53.8 ; Hypocalcemia E83.51 ; Hypomagnesemia E83.42 and Prostate cancer screening Z12.5 [facility] [address] [facility] [address] [place] [id number] 07/30/2023 Harsha Cohoes [facility] [address] [facility] [address] [place], [place] [id number] 08/03/2023 Harsha Cohoes Hypothyroidism (acqu ired) E03.9 ; Hypomagnesemia E83.42 ; Vitamin B12 deficiency E53.8 and Erectile dysfunction, unspecified erectile dysfunction type N52.9 [facility] [address] [facility] [address] [place] [id number] 08/21/2023 Harsha Cohoes [facility] [address] [facility] [address] [place] [id number] 10/16/2023 Harsha Cohoes Pain, eye, right H57 .11 ; Peripheral edema R60.0 ; Acquired hypothyroidism E03.9 and Hypomagnesemia E83.42 [facility] [address] [facility] [address] [place], [place] [id number] 10/21/2023 Harsha Cohoes Acquired hypothyroid ism E03.9 [facility] [address] [facility] [address] [place] [id number] 10/29/2023 Harsha Cohoes [facility] [address] [facility] [address] [place] [id number] 12/17/2023 Harsha Cohoes [facility] [address] [place] [id number] 12/24/2023 Harsha Cohoes Hypothyroidism, unspecified E03.9 ; Hypomagnesemia E83.42 and Anemia D64.9 [facility] [address] [place] [id number] 12/25/2023 Harsha Cohoes [facility] [address] [place] [id number] 12/28/2023 Harsha Cohoes Left hip pain M25.55 2 ; Hypomagnesemia E83.42 and Hypothyroidism (acquired) E03.9 [facility] [address] [place] [id number] 01/25/2024 Harsha Cohoes Hypomagnesemia E83.4 2 and Hypothyroidism (acquired) E03.9 [facility] [address] [place] [id number] 01/26/2024 Harsha Cohoes [facility] [address] [place] [id number] 02/08/2024 Harsha Cohoes [facility] [address] [place] [id number] 02/15/2024 Harsha Cohoes [facility] [address] [place] [id number] 02/29/2024 Harsha Cohoes [facility] [address] [place] [id number] 03/01/2024 Harsha Cohoes Other fatigue R53.83 ; Polyarthralgia M25.50 ; Muscle weakness (generalized) M62.81 ; Vitamin B12 deficiency E53.8 and Hypothyroidism E03.9 [facility] [address] [place] [id number] 03/04/2024 Harsha Cohoes Hypokalemia E87.6 [facility] [address] [place] [id number] 03/07/2024 Harsha Cohoes Dark urine R82.998 [facility] [address] [place] [id number] 03/07/2024 Harsha Cohoes [facility] [address] [place] [id number] 03/11/2024 Harsha Cohoes [facility] [address] [place] [id number] 03/14/2024 Harsha Cohoes [facility] [address] [place] [id number] 03/16/2024 Harsha Cohoes [facility] [address] [place] [id number] 03/23/2024 Harsha Cohoes [facility] [address] [place] [id number] 03/28/2024 Harsha Cohoes [facility] [address] [place] [id number] 04/04/2024 Harsha Cohoes [facility] [address] [place] [id number] 04/04/2024 Harsha Cohoes ASSESSMENTS Encounter Date Diagnosis Assessment Notes Treatment Notes Treatment Clinical Notes 07/27/2023 Hypothyroidism (ICD-10 - E03.9) 07/27/2023 Hypothyroidism (acquired) (ICD-10 - E03.9) 07/27/2023 Essential hypertension (ICD-10 - I10) 08/03/2023 Hypothyroidism (acquired) (ICD-10 - E03.9) 08/03/2023 Hypomagnesemia (ICD-10 - E83.42) Patient will change to liquid Magnesium supplement 12/28/2023 Left hip pain (ICD-1 0 - M25.552) Dr. Hassan has already given patient an injection and arranged for him to have physical therapy 12/28/2023 Hypomagnesemia (ICD-10 - E83.42) 01/25/2024 Hypothyroidism (acquired) (ICD-10 - E03.9) 01/25/2024 Hypomagnesemia (ICD-10 - E83.42) 03/07/2024 Dark urine (ICD-10 - R82.998) 03/01/2024 Polyarthralgia (ICD-10 - M25.50) 03/01/2024 Other fatigue (ICD-1 0 - R53.83) 10/21/2023 Acquired hypothyroidism (ICD-10 - E03.9) 10/16/2023 Pain, eye, right (ICD-10 - H57.11) No change in treatment today, keep appointment to be seen next week 10/16/2023 Peripheral edema (ICD-10 - R60.0) 10/16/2023 Acquired hypothyroidism (ICD-10 - E03.9) 03/01/2024 Muscle weakness (generalized) (ICD-10 - M62.81) 03/04/2024 Hypokalemia (ICD-10 - E87.6) 08/03/2023 Vitamin B12 deficiency (ICD-10 - E53.8) Vit B12 normal 12/24/2023 Hypothyroidism, unspecified (ICD-10 - E03.9) 12/28/2023 Hypothyroidism (acquired) (ICD-10 - E03.9) 07/27/2023 Hypokalemia (ICD-10 - E87.6) 07/27/2023 Vitamin B12 deficiency (ICD-10 - E53.8) 12/24/2023 Hypomagnesemia (ICD-10 - E83.42) 08/03/2023 Erectile dysfunction , unspecified erectile dysfunction type (ICD-10 - N52.9) 03/01/2024 Vitamin B12 deficiency (ICD-10 - E53.8) 10/16/2023 Hypomagnesemia (ICD-10 - E83.42) 03/01/2024 Hypothyroidism (ICD-10 - E03.9) 12/24/2023 Anemia (ICD-10 - D64.9) 07/27/2023 Hypocalcemia (ICD-10 - E83.51) 07/27/2023 Hypomagnesemia (ICD-10 - E83.42) 07/27/2023 Prostate cancer screening (ICD-10 - Z12.5) 08/03/2023 Other Labs reviewed a t office visit, TSH high, Mag low 12/28/2023 Other Plan to recheck labs in 1 month PLAN OF TREATMENT Pending Test Test Name Order Date H-CBC 04/06/2024 H-DIFF 04/06/2024 H-Rheumatoid Arthritis Panel 03/01/2024 H-CMP 04/06/2024 H-Magnesium 04/06/2024 H-JULEE 03/01/2024 H-URIC ACID 03/01/2024 H-Sed Rate 03/01/2024 Insurance Providers Payer Name Payer Address Payer Phone Subscriber Number Group Number Insured Name Patient Relationship to Insured Coverage Start Date Coverage End Date MEDICARE PART B [address] [address] [place] [address] [id number] CRISTIAN GUERRERO Self - patient is the insured [employer] [address] [place] [address] [id number] CRISTIAN GUERRERO Self - patient is the insured MEDICATIONS ADMINISTERED Medication Instructions Date of Administration Dosage Notes B-12 08/11/2012 1 mL B-12 10/14/2021 1 mL B-12 10/28/2022 1 mL MEDICAL (GENERAL) HISTORY Medical History History ICD Code Kidney Stones Hypothyroidism Hypertension Surgical History Surgery Date(Month/Year) Abdominal Bypass surgery for weight loss 1985 Hernia Repair- lower left quardant Incarcerated Hernia from bypass surgery Removal of suspicious area on nose 06/12 Colonoscopy: Floppy C-olon, mild diverti culosis, polyp 04/2012 Colonoscopy 07/2018 Colonoscopy 10/31/2022 Hospitalization History Reason Date(Month/Year) Kidney Stones
--- OUTSIDE RECORDS SUMMARY | 2024-04-06 10:11 | XMS_ITS ---
Author Organization Nataly Address [address] [facility] [address] [facility] [address] [place] [phone] Care Team Providers Care Network Internship Name Role Phone Harsha Valero Primary Care Provider Romero Duenas [phone] REASON FOR VISIT Requests Call Back from MD Encounters Encounter Location Date Provider Diagnosis [facility] [address] [facility] [address] [facility] [address] [place] [id number] 04/04/2024 Harsha Valero PLAN OF TREATMENT No Information
--- OUTSIDE RECORDS SUMMARY | 2024-04-06 10:11 | XMS_ITS ---
[facility] [address] [facility] [address] [place] [phone] Care Team Providers Care Offset Platemaker Name Role Phone Harsha Valero Primary Care Provider Romero Duenas [phone] REASON FOR VISIT Test results* Encounters Encounter Location Date Provider Diagnosis [place] [address] [facility] [address] [place] [phone] 03/28/2024 Harsha Valero PLAN OF TREATMENT No Information
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
--- NOTE | 2024-04-06 17:07 | PC.NURSE ---
at 0824 lab called and reported a critical potassium of 2.7 on this patient. MD was already aware and ordered potassium replacements.
--- NOTE | 2024-04-06 18:12 | PC.NURSE ---
patient is alert and oriented x4, remains on RA, o2 sats have been <90%. 4+ BLE edema persists. IV potassium given per MAR due to potassium being 2.7. has had several loose BM this shift, needs stool specimen. voids per male purewick. has been at bedside all shift. no c/o pain or nausea. pt is currently sitting up eating dinner. call light within reach, no further requests at this time.
--- NOTE | 2024-04-06 20:00 | PC.NURSE ---
gave report to david calvin
[2024-04-07] VITALS (7 sets, daily range): BP systolic 92–104; BP diastolic 58–69; PULSE 60–90; RESP 16–18; TEMP 36.4–36.6; O2SAT 95–99; BMI 19.5
--- NOTE | 2024-04-07 03:25 | PC.NURSE ---
PT HAS DONE WELL THIS SHIFT. NO REPORTS OF PAIN. HE HAS HAD 1 BM THIS SHIFT. VSS. HE IS BEING TURNED REQUESTED. HE HAS RESTED WELL.
[2024-04-07] MEDS: LEVOTHYROXINE 125 MCG PO (07:35)
[2024-04-07] MEDS: [UNRECOGNIZED DRUG - OTHER] PO ×2 (08:05→21:12)
--- NOTE | 2024-04-07 08:48 | P.PN_ITS ---
Subjective *Date: 04/07/24 *Time: 09:05 Interval history: Patient is feeling a little bit better today. He is able to eat but continues with diarrhea. He denies any pain. He is still very weak. Medical Exam Vital signs and Labs for Last 24 Hours: Vital Signs Temp Pulse Pulse Resp BP Pulse Ox O2 Del Method 04/07/24 07:58 97.7 F 83 16 97/63 L 95 Room Air 04/07/24 07:00 Room Air 04/07/24 05:00 Room Air 04/07/24 04:00 60 04/07/24 02:47 Room Air 04/07/24 00:55 Room Air 04/07/24 00:00 60 04/07/24 00:00 97.8 F 77 16 104/67 L 99 Room Air 04/06/24 23:00 Room Air 04/06/24 21:20 Room Air 04/06/24 21:19 Room Air 04/06/24 21:00 98.2 F 73 18 103/58 L 94 L Room Air 04/06/24 20:00 60 04/06/24 18:39 Room Air 04/06/24 17:00 Room Air 04/06/24 16:00 70 04/06/24 15:47 96.7 F L 74 16 102/58 L 94 L Room Air 04/06/24 15:00 Room Air 04/06/24 13:00 Room Air 04/06/24 11:00 Room Air 04/06/24 09:00 Room Air Intake and Output 04/06/24 04/07/24 04/07/24 19:59 03:59 11:59 Intake Total 890 / 890 Output Total 0 / 400 400 / 400 Balance 890 / 490 -400 / 490 Intake: Intake, Oral Amount 690 / 690 Intake, Total IV Amount 200 / 200 KCl 20mEq/100ml 100 ml @ 50 mls 200 / 200 /hr IV Q2H [facility] Rx#:[id number] Output: Output, Urine Amount 0 / 400 400 / 400 Other: Number of Bowel Movements 1 1 Weight 136 lb 1.6 oz Patient Weight 04/07/24 11:59 Weight 136 lb 1.6 oz Laboratory Results - last 24 hr 04/06/24 07:01: Total Counted 100, Neutrophils % (Manual) 92 H, Lymphocytes % (Manual) 7 L, Monocytes % (Manual) 1 L, Platelet Estimate Normal, RBC Morphology Normal I & O for Labs for Last 24 Hours: Intake & Output 04/04/24 04/05/24 04/06/24 04/07/24 11:59 11:59 11:59 11:59 Intake Total 300 / 300 840 / 840 890 / 890 Output Total 150 / 150 300 / 300 400 / 400 Balance 150 / 150 540 / 540 490 / 490 Weight 135 lb 15.698 oz 132 lb 8 oz 136 lb 1.6 oz Microbiology Reports for the Last 24 Hours: Microbiology 04/05/24 11:50 Peritoneal Fluid Gram Stain - Preliminary 04/05/24 11:50 Peritoneal Fluid Body Fluid Culture - Preliminary NO GROWTH AFTER 24 HOURS 04/05/24 11:50 Ascites Fluid Body Fluid Culture - Preliminary NO GROWTH AFTER 24 HOURS Constitutional: Present no acute distress Respiratory: Present CTA bilaterally Cardiac: Present Reg Rate and Rhythm GI: Present soft and normal bowel sounds; Absent distention or tenderness Extremities: Absent edema Skin: Present intact Neuro: Present alert, awake and oriented x 3 Assessment and Plan *Assessment and plan (1) Protein-calorie malnutrition, severe: Status: Acute Category: Medical Code(s): E43 - Unspecified severe protein-calorie malnutrition (2) Ascites: Status: Acute Category: Medical Code(s): R18.8 - Other ascites (3) Bilateral pleural effusion: Status: Acute Category: Medical Code(s): J90 - Pleural effusion, not elsewhere classified (4) Anasarca: Status: Acute Category: Medical Code(s): R60.1 - Generalized edema (5) Trochanteric bursitis, left hip: Status: Acute Category: Medical Code(s): M70.62 - Trochanteric bursitis, left hip (6) Osteoarthritis of left knee: Status: Acute Qualifiers: Osteoarthritis type: primary Qualified Code(s): M17.12 - Unilateral primary osteoarthritis, left knee Category: Medical Code(s): M17.12 - Unilateral primary osteoarthritis, left knee (7) Adult failure to thrive: Status: Acute Category: Medical Code(s): R62.7 - Adult failure to thrive (8) Corneal ulcer of right eye: Status: Acute Category: Medical Code(s): H16.001 - Unspecified corneal ulcer, right eye (9) Weakness: Status: Acute Category: Medical Code(s): R53.1 - Weakness (10) Hypokalemia: Status: Acute Category: Medical Code(s): E87.6 - Hypokalemia Plan GI is following. Patient will need placement. Will get labs this am. Dr. Valero entry - Saw patient, agree with above note. AM labs pending, discussed post hospital rehab plan with patient today
--- NOTE | 2024-04-07 08:59 | EXP.PHA.PN ---
Subjective *Date: 04/07/24 *Time: 08:59 Medical Exam Vital signs and Labs for Last 24 Hours: Vital Signs Temp Pulse Pulse Resp BP Pulse Ox O2 Del Method 04/07/24 07:58 97.7 F 83 16 97/63 L 95 Room Air 04/07/24 07:00 Room Air 04/07/24 05:00 Room Air 04/07/24 04:00 60 04/07/24 02:47 Room Air 04/07/24 00:55 Room Air 04/07/24 00:00 60 04/07/24 00:00 97.8 F 77 16 104/67 L 99 Room Air 04/06/24 23:00 Room Air 04/06/24 21:20 Room Air 04/06/24 21:19 Room Air 04/06/24 21:00 98.2 F 73 18 103/58 L 94 L Room Air 04/06/24 20:00 60 04/06/24 18:39 Room Air 04/06/24 17:00 Room Air 04/06/24 16:00 70 04/06/24 15:47 96.7 F L 74 16 102/58 L 94 L Room Air 04/06/24 15:00 Room Air 04/06/24 13:00 Room Air 04/06/24 11:00 Room Air 04/06/24 09:00 Room Air Intake and Output 04/06/24 04/07/24 04/07/24 23:59 07:59 15:59 Intake Total 370 / 1370 Output Total 400 / 400 0 / 0 Balance -30 / 970 0 / 0 Intake: Intake, Oral Amount 270 / 1070 Intake, Total IV Amount 100 / 300 KCl 20mEq/100ml 100 ml @ 50 mls 100 / 300 /hr IV Q2H [facility] Rx#:[id number] Output: Output, Urine Amount 400 / 400 0 / 0 Other: Number of Bowel Movements 1 1 Weight 61.734 kg Patient Weight 04/07/24 23:59 Weight 61.734 kg I & O for Labs for Last 24 Hours: Intake & Output 04/04/24 04/05/24 04/06/24 04/07/24 23:59 23:59 23:59 23:59 Intake Total 660 / 660 1370 / 1370 Output Total 450 / 450 400 / 400 0 / 0 Balance 210 / 210 970 / 970 0 / 0 Weight 54.278 kg 61.68 kg 60.101 kg 61.734 kg Microbiology Reports for the Last 24 Hours: Microbiology 04/05/24 11:50 Peritoneal Fluid Gram Stain - Preliminary 04/05/24 11:50 Peritoneal Fluid Body Fluid Culture - Preliminary NO GROWTH AFTER 24 HOURS 04/05/24 11:50 Ascites Fluid Body Fluid Culture - Preliminary NO GROWTH AFTER 24 HOURS The patient's infection will respond to the chosen ABx?: Yes Is the patient receiving the right drug, dose, and route?: Yes Could a more targeted ABx be ordered?: No
--- NOTE | 2024-04-07 09:03 | SW/DCPLANNER ---
Addendum entered by Linnea Dalal 04/11/24 13:08: Nini collier/ [facility] evaluated patient today. Nini stated that patient is a candidate for their services and equipment including a hospital bed will be set up in the home today. YULIYA has contacted Dr Valero office to discharge this patient. Patient will discharge home via ambulance. Addendum entered by Linnea Dalal 04/11/24 09:50: Per Lili collier/ [facility] she will work on sending Hospice nurse this AM. Addendum entered by Linnea Dalal 04/11/24 09:29: Patient/family now prefer to return home w/ Hospice services. Patient information has been faxed to Lili collier/ [facility]. I will follow up once she reviews information. Patient wants to return home today. Addendum entered by Yoli Elizabeth RN 04/08/24 12:15: [facility] offered a bed and patient has accepted. Paperwork is being emailed to his spouse. Patient is able to discharge to [facility] on Thursday as long as spouse returns paperwork today. Addendum entered by Yoli Elizabeth RN 04/08/24 07:45: I will attempt to contact [facility] this morning. Faxed referral to [facility]. Addendum entered by Zoila Trotter RN 04/07/24 16:54: [facility] is unable to accept patient. Spoke with patient and and they requested to try [facility] in [place] next and then [facility] if they couldn't accept him. Information sent to [facility]. Original Note: I spoke w/ this patient regarding plans once medically stable for discharge. PT/OT evaluated patient and recommended SNF level of care. I spoke w/ patient and his this AM: they are agreeable to placement at [facility]. Per Kayla / [facility] beds are available at this time. Patient information has been faxed to [facility] at this time.
[2024-04-07 09:11] LABS: Basophils % 0.3 % (0.1-2.0); Eosinophils % 0.4 % (0.1-12.0); Hematocrit 36.4 % (42.0-52.0); Hemoglobin 11.7 g/dL (14.1-18.0); Lymphocytes # 0.4 K/mm3 (0.7-4.5); Lymphocytes % 7.6 % (10-50); Mean Corpuscular HGB Conc 32.1 g/dL (31.8-35.4); Mean Corpuscular Hemoglobin 31.9 pg (27.0-31.2); Mean Corpuscular Volume 99.3 fl (80-94); Monocytes # 0.2 K/mm3 (0.1-1.0); Neutrophils # 4.7 K/mm3 (1.8-7.8); Neutrophils % 88.6 % (37.0-80.0); Platelet Count 180 K/mm3 (142-424); Red Blood Count 3.67 M/mm3 (4.60-6.20); Red Cell Distribution Width 14.6 % (11.5-17.5); White Blood Count 5.3 K/mm3 (4.8-10.8)
[2024-04-07 09:18] LABS: Albumin Level 1.7 g/dl (3.5-5.0); Chloride 113 mmol/L (98-107); Potassium 3.3 mmoL/L (3.5-5.1); Sodium 135 mmol/L (136-145)
[2024-04-07 09:19] LABS: MANUAL DIFFERENTIAL MANUAL DIFFERENTIAL (MANUAL DIFF)
[2024-04-07 09:21] LABS: Alanine Aminotransferase 44 U/L (12-78); Albumin/Globulin Ratio 0.7 (1.1-1.8); Alkaline Phosphatase 104 U/L (38-126); Anion Gap 7.3 mEq/L (5-15); Aspartate Amino Transferase 46 U/L (17-59); Bilirubin,Total 0.7 mg/dl (0.2-1.3); Blood Urea Nitrogen 33 mg/dl (9-20); Calcium 6.9 mg/dl (8.4-10.2); Carbon Dioxide 18 mmol/L (22.0-30.0); Creatinine Clearance Estimated 57 mL/min (50-200); Estimated Glomerular Filt Rate 163 ml/min (>60); GFR (African American) 197 ML/MIN (>60); Globulin 2.4 g/dL (1.3-3.2); Glucose 71 mg/dl (74-100); Total Protein,Serum 4.1 g/dl (6.3-8.2)
[2024-04-07 10:13] LABS: Hypochromasia 1+; Lymphocytes % 1 % (10-50); Neutrophils % 93 % (42-76); Platelet Estimate Normal; Total Cells Counted 100
[2024-04-07] MEDS: KCl 20mEq/100ml 100 ML 50 MEQ IV ×3 (11:35→16:07)
[2024-04-07 14:38] LABS: Endomysial IgA Antibody Negative (Negative)
[2024-04-07 15:58] LABS: Deamidated Gliadin Abs, IgA 3 units (0-19); Deamidated Gliadin Abs, IgG 2 units (0-19); Tissue Transglutaminase IgA Ab <2 U/mL (0-3); Tissue Transglutaminase IgG Ab <2 U/mL (0-5)
[2024-04-07] MEDS: MAGNESIUM SULFATE IN WATER 2 GM/50 ML PIGGYBACK IV (23:47)
[2024-04-08] VITALS: BP 90/65; PULSE 83; PULSE 85; RESP 16; TEMP 36.5; O2SAT 91
[2024-04-08] MEDS: MAGNESIUM SULFATE IN WATER 2 GM/50 ML PIGGYBACK IV (01:00)
[2024-04-08 04:00] VITALS: BMI 28.3
[2024-04-08] MEDS: LEVOTHYROXINE 125 MCG PO (06:00)
[2024-04-08 07:16] LABS: Anion Gap 7.9 mEq/L (5-15); Blood Urea Nitrogen 32 mg/dl (9-20); Calcium 6.9 mg/dl (8.4-10.2); Carbon Dioxide 17 mmol/L (22.0-30.0); Chloride 114 mmol/L (98-107); Creatinine Clearance Estimated 82 mL/min (50-200); Estimated Glomerular Filt Rate 132 ml/min (>60); GFR (African American) 159 ML/MIN (>60); Glucose 62 mg/dl (74-100); Potassium 3.9 mmoL/L (3.5-5.1); Sodium 135 mmol/L (136-145)
[2024-04-08 07:26] LABS: Basophils % 0.3 % (0.1-2.0); Eosinophils % 0.3 % (0.1-12.0); Hematocrit 36.3 % (42.0-52.0); Hemoglobin 11.9 g/dL (14.1-18.0); Lymphocytes # 0.6 K/mm3 (0.7-4.5); Mean Corpuscular HGB Conc 32.8 g/dL (31.8-35.4); Mean Corpuscular Hemoglobin 32.1 pg (27.0-31.2); Mean Corpuscular Volume 97.7 fl (80-94); Mean Platelet Volume 9.3 fl (7.4-10.4); Monocytes # 0.3 K/mm3 (0.1-1.0); Monocytes % 4.5 % (1.7-9.3); Neutrophils # 4.6 K/mm3 (1.8-7.8); Neutrophils % 83.9 % (37.0-80.0); Platelet Count 164 K/mm3 (142-424); Red Blood Count 3.71 M/mm3 (4.60-6.20); Red Cell Distribution Width 14.9 % (11.5-17.5); White Blood Count 5.5 K/mm3 (4.8-10.8)
[2024-04-08 08:00] VITALS: BP 118/60; PULSE 76; RESP 15; TEMP 36.4; O2SAT 96
--- NOTE | 2024-04-08 08:07 | P.PN_ITS ---
Subjective *Date: 04/08/24 *Time: 08:52 Interval history: Patient states he is still having diarrhea but he is trying to eat and drink. He slept well last night. He denies any pain and can move his feet and legs slightly more than he could when he first got here. Medical Exam Vital signs and Labs for Last 24 Hours: Vital Signs Temp Pulse Pulse Resp BP Pulse Ox O2 Del Method 04/08/24 00:49 Room Air 04/08/24 00:00 97.7 F 85 16 90/65 L 91 L Room Air 04/08/24 00:00 83 04/07/24 23:00 Room Air 04/07/24 21:00 Room Air 04/07/24 20:00 78 04/07/24 20:00 Room Air 04/07/24 20:00 97.5 F L 90 18 100/69 L 97 Room Air 04/07/24 18:53 Room Air 04/07/24 17:00 Room Air 04/07/24 16:00 70 04/07/24 16:00 97.7 F 78 16 92/58 L 98 Room Air 04/07/24 14:49 Room Air 04/07/24 13:00 Room Air 04/07/24 12:00 75 04/07/24 12:00 97.6 F 69 16 101/58 L 96 Room Air 04/07/24 11:00 Room Air 04/07/24 09:00 Room Air Intake and Output 04/07/24 04/08/24 04/08/24 19:59 03:59 11:59 Intake Total 670 / 910 240 / 910 Output Total 100 / 100 Balance 570 / 810 240 / 810 Intake: Intake, Oral Amount 470 / 710 240 / 710 Intake, Total IV Amount 200 / 200 KCl 20mEq/100ml 100 ml @ 50 mls 200 / 200 /hr IV Q2H [facility] Rx#:[id number] Output: Output, Urine Amount 100 / 100 Other: Number of Unmeasured Voids 0 Number of Bowel Movements 1 1 Weight 197 lb 11.2 oz Patient Weight 04/08/24 11:59 Weight 197 lb 11.2 oz Laboratory Results - last 24 hr 04/05/24 18:48: Endomysial IgA Ab Negative, Tiss Transglutamin IgG <2, Tiss Transglutamin IgA <2, Gliadin (Deamidat) IgG 2, Gliadin (Deamidat) IgA 3 04/07/24 08:51: WBC 5.3, RBC 3.67 L, Hgb 11.7 L, Hct 36.4 L, MCV 99.3 H, MCH 31.9 H, MCHC 32.1, RDW 14.6, Plt Count 180, MPV 9.0, Neut % (Auto) 88.6 H, Lymph % (Auto) 7.6 L, [place] % (Auto) 3.0, Eos % (Auto) 0.4, Baso % (Auto) 0.3, Neut # (Auto) 4.7, Lymph # (Auto) 0.4 L, [place] # (Auto) 0.2, Eos # (Auto) 0.0, Baso # (Auto) 0.0, Total Counted 100, Neutrophils % (Manual) 93 H, Band Neutrophils % 6.0, Lymphocytes % (Manual) 1 L, Platelet Estimate Normal, Hypochromasia 1+, Sodium 135 L, Potassium 3.3 L D, Chloride 113 H, Carbon Dioxide 18 L, Anion Gap 7.3, BUN 33 H, Creatinine 0.50 L D, Estimated Creat Clear 57, Estimated GFR 163, Est GFR ( Amer) 197 D, Glucose 71 L, Calcium 6.9 L, Total Bilirubin 0.7, AST 46, ALT 44, Alkaline Phosphatase 104, Total Protein 4.1 L, Albumin 1.7 L, Globulin 2.4, Albumin/Globulin Ratio 0.7 L 04/08/24 06:28: WBC 5.5, RBC 3.71 L, Hgb 11.9 L, Hct 36.3 L, MCV 97.7 H, MCH 32.1 H, MCHC 32.8, RDW 14.9, Plt Count 164, MPV 9.3, Neut % (Auto) 83.9 H, Lymph % (Auto) 11.0, [place] % (Auto) 4.5, Eos % (Auto) 0.3, Baso % (Auto) 0.3, Neut # (Auto) 4.6, Lymph # (Auto) 0.6 L, Dickinson # (Auto) 0.3, Eos # (Auto) 0.0, Baso # (Auto) 0.0, Sodium 135 L, Potassium 3.9, Chloride 114 H, Carbon Dioxide 17 L, Anion Gap 7.9, BUN 32 H, Creatinine 0.60 L, Estimated Creat Clear 82, Estimated GFR 132, Est GFR ( Amer) 159, Glucose 62 L, Calcium 6.9 L I & O for Labs for Last 24 Hours: Intake & Output 04/05/24 04/06/24 04/07/24 04/08/24 11:59 11:59 11:59 11:59 Intake Total 300 / 300 840 / 840 1160 / 1160 910 / 910 Output Total 150 / 150 300 / 300 400 / 400 100 / 100 Balance 150 / 150 540 / 540 760 / 760 810 / 810 Weight 135 lb 15.698 oz 132 lb 8 oz 136 lb 1.6 oz 197 lb 11.2 oz Microbiology Reports for the Last 24 Hours: Microbiology 04/05/24 11:50 Peritoneal Fluid Gram Stain - Preliminary 04/05/24 11:50 Peritoneal Fluid Body Fluid Culture - Preliminary NO GROWTH AFTER 48 HOURS 04/05/24 11:50 Ascites Fluid Body Fluid Culture - Preliminary NO GROWTH AFTER 48 HOURS Constitutional: Present no acute distress, thin and cachectic Respiratory: Present CTA bilaterally Cardiac: Present Reg Rate and Rhythm GI: Present soft and normal bowel sounds; Absent distention or tenderness Extremities: Absent edema Skin: Present intact Neuro: Present alert, awake and oriented x 3 Assessment and Plan *Assessment and plan (1) Protein-calorie malnutrition, severe: Status: Acute Category: Medical Code(s): E43 - Unspecified severe protein-calorie malnutrition (2) Ascites: Status: Acute Category: Medical Code(s): R18.8 - Other ascites (3) Bilateral pleural effusion: Status: Acute Category: Medical Code(s): J90 - Pleural effusion, not elsewhere classified (4) Anasarca: Status: Acute Category: Medical Code(s): R60.1 - Generalized edema (5) Trochanteric bursitis, left hip: Status: Acute Category: Medical Code(s): M70.62 - Trochanteric bursitis, left hip (6) Osteoarthritis of left knee: Status: Acute Qualifiers: Osteoarthritis type: primary Qualified Code(s): M17.12 - Unilateral primary osteoarthritis, left knee Category: Medical Code(s): M17.12 - Unilateral primary osteoarthritis, left knee (7) Adult failure to thrive: Status: Acute Category: Medical Code(s): R62.7 - Adult failure to thrive (8) Corneal ulcer of right eye: Status: Acute Category: Medical Code(s): H16.001 - Unspecified corneal ulcer, right eye (9) Weakness: Status: Acute Category: Medical Code(s): R53.1 - Weakness (10) Hypokalemia: Status: Acute Category: Medical Code(s): E87.6 - Hypokalemia Plan Potassium has normalized. Patient states he was brought a calcium pill last night but does not need it and would like it cancelled. I cannot find an order for calcium. Care management is trying to find placement for the patient. Will discuss further care with Dr. Valero. Dr. Valero entry - Saw patient, agree with above note. Discussed adding Megace with patient, he is unsure if he wants to add any medication at this time. Waiting on placement
[2024-04-08] MEDS: DOXYCYCLINE HYCL 100 MG TABLET PO ×2 (08:50→21:41)
[2024-04-08 11:15] LABS: Albumin, Body Fluid 0.2 g/dL (Not Estab.); Albumin, Body Fluid 0.3 g/dL (Not Estab.); Glucose, Body Fluid 90 mg/dL (.); Glucose, Body Fluid 91 mg/dL (.); LD, Body Fluid 36 IU/L (.); Protein, Body Fluid 0.7 g/dL (.)
--- NOTE | 2024-04-08 14:32 | DIET.NUTRFU ---
Spoke to nursing aid today, patient has not had any BM today so far and tim 1 ensure for lunch likes strawberry. Had some hoskins from breakfast. Still not eating much but possible improvement with BM slowing down. family preservation caseworker working on placement. Ordered a homemade strawberry shake with dinner
[2024-04-08 15:49] VITALS: BP 78/39; BP 80/53; PULSE 74; RESP 16; TEMP 35.6; O2SAT 98
--- NOTE | 2024-04-08 16:19 | PC.NURSE ---
PT HAS DONE FAIR THIS SHIFT. HE HAS BEEN TURNED Q2HRS AND REQUESTED. HE HAS VOICED THAT HE LIKES STRAWBERRY ENSURE AND HAD THE DIETITION ADD TO HIS DIET ORDER FOR MEALS. HE STATES THE HE FEELS A LITTLE BETTER.
[2024-04-08 19:22] VITALS: BP 95/60; PULSE 82; RESP 16; TEMP 36.9; O2SAT 90
[2024-04-08 20:00] VITALS: PULSE 82; RESP 16; O2SAT 92
[2024-04-08] MEDS: MAGIC MOUTHWASH 300ML BOTTLE 30 ML PO (20:35)
[2024-04-09] VITALS (8 sets, daily range): BP systolic 90–107; BP diastolic 56–63; PULSE 76–90; RESP 16–18; TEMP 34.8–36.7; O2SAT 91–97; BMI 18.6
--- NOTE | 2024-04-09 05:37 | PC.NURSE ---
Patient is alert and oriented x4. Patient was observed to have occasional resting periods with eyes closed, respirations even and unlabored, and no apparent distress throughout the night. He has kept his sunglasses on through the shift due to his history of eye issues. He has multiple skin tears in different places on his body (arm, back, antecubital) and scattered scabs on his bilateral legs. He also also a pressure area on his coccyx. Patient appears to be quite frail and fragile; he stated that his skin tears extremely easily. He has been turned by staff every 2 hours; his mobility is very limited. Patient has severe, +4 pitting edema in his ankles/feet with mottling. He has a male purewick in place and has been using the bedpan (requests for a towel to be placed over the lip for cushioning). His bowel movements have been very watery and light brown; urine has been very dark and rust-colored. He was given one dose of a swish and spit of magic mouthwash this shift for mouth soreness; patient verbalized that this has helped some. He was also given his scheduled medications per MAR; home medications have been kept in the [facility]. Upon auscultation, his lung sounds were clear, bowel sounds were active, and S1/S2 heart sounds could be heard. He has had some assistance with drinking ice water. He has had soft blood pressures this shift. At around 03:30 this shift, patient's temperatures were found to be very low. His axillary temp (taken by ) was 96.1 and his rectal temp (taken by Romero MARTINEZ) was 94.6. A wayne hugger, 3 warm blankets, and 2 blue comforters were placed over the patient to aid in increasing his core temperature. Patient has not had any complaints this shift. At this time, he is resting supine in bed. Call light within reach.
--- NOTE | 2024-04-09 06:54 | PC.NURSE ---
Patient's temperatures were taken again at this time. Axillary (right arm) and rectal temperatures were 96.3. Arjun hugger and blankets remain in place.
[2024-04-09] MEDS: LEVOTHYROXINE 125MCG (0.125MG) TAB 125 MCG PO (07:05)
--- NOTE | 2024-04-09 07:12 | EXP.ACUTE.PN ---
Subjective *Date: 04/09/24 *Time: 07:12 Interval history: Patient felt cold overnight. States he was able to stand once yesterday. Medical Exam Vital signs and Labs for Last 24 Hours: Vital Signs Temp Pulse Resp BP BP Pulse Ox O2 Del Method 04/09/24 06:57 96.3 F L 04/09/24 06:50 96.3 F L 04/09/24 03:46 94.6 F L 76 16 107/63 L 91 L Room Air 04/09/24 03:30 96.1 F L 04/09/24 03:00 Room Air 04/09/24 01:00 Room Air 04/08/24 23:00 Room Air 04/08/24 21:00 Room Air 04/08/24 20:00 82 16 92 L Room Air 04/08/24 19:22 98.4 F 82 16 95/60 L 90 L Room Air 04/08/24 18:46 Room Air 04/08/24 17:00 Room Air 04/08/24 15:49 96.0 F L 74 16 80/53 L 78/39 L 98 Room Air 04/08/24 14:48 Room Air 04/08/24 13:00 Room Air 04/08/24 10:57 Room Air 04/08/24 09:00 Room Air 04/08/24 08:00 Room Air 04/08/24 08:00 97.6 F 76 15 118/60 96 Room Air Intake and Output 04/08/24 04/08/24 04/09/24 15:59 23:59 07:59 Intake Total 585 / 1165 240 / 1165 100 / 100 Output Total 100 / 100 Balance 585 / 1065 240 / 1065 0 / 0 Intake: Intake, Oral Amount 585 / 1165 240 / 1165 100 / 100 Output: Output, Urine Amount 100 / 100 Other: Number of Bowel Movements 1 1 1 Weight 130 lb 5 oz Patient Weight 04/09/24 23:59 Weight 130 lb 5 oz Laboratory Results - last 24 hr 04/05/24 11:50: Fluid Glucose 90 04/05/24 11:50: Fluid Glucose 91, Fluid Total Protein 0.7 04/05/24 11:50: Fluid Total Protein 0.7, Fluid Albumin 0.3 04/05/24 11:50: Fluid Albumin 0.2, Fluid LDH 36 04/05/24 11:50: Fluid LDH 36 04/08/24 06:28: WBC 5.5, RBC 3.71 L, Hgb 11.9 L, Hct 36.3 L, MCV 97.7 H, MCH 32.1 H, MCHC 32.8, RDW 14.9, Plt Count 164, MPV 9.3, Neut % (Auto) 83.9 H, Lymph % (Auto) 11.0, [place] % (Auto) 4.5, Eos % (Auto) 0.3, Baso % (Auto) 0.3, Neut # (Auto) 4.6, Lymph # (Auto) 0.6 L, [place] # (Auto) 0.3, Eos # (Auto) 0.0, Baso # (Auto) 0.0, Sodium 135 L, Potassium 3.9, Chloride 114 H, Carbon Dioxide 17 L, Anion Gap 7.9, BUN 32 H, Creatinine 0.60 L, Estimated Creat Clear 82, Estimated GFR 132, Est GFR ( Amer) 159, Glucose 62 L, Calcium 6.9 L I & O for Labs for Last 24 Hours: Intake & Output 04/06/24 04/07/24 04/08/24 04/09/24 23:59 23:59 23:59 23:59 Intake Total 1370 / 1370 940 / 1180 1065 / 1165 100 / 100 Output Total 400 / 400 100 / 100 100 / 100 Balance 970 / 970 840 / 1080 1065 / 1065 0 / 0 Weight 132 lb 8 oz 136 lb 1.6 oz 197 lb 11.2 oz 130 lb 5 oz Microbiology Reports for the Last 24 Hours: Microbiology 04/05/24 11:50 Peritoneal Fluid Gram Stain - Preliminary 04/05/24 11:50 Peritoneal Fluid Body Fluid Culture - Preliminary NO GROWTH AFTER 72 HOURS 04/05/24 11:50 Ascites Fluid Body Fluid Culture - Preliminary NO GROWTH AFTER 72 HOURS Constitutional: Present no acute distress, thin and cachectic Respiratory: Present CTA bilaterally Cardiac: Present Reg Rate and Rhythm GI: Present soft and normal bowel sounds; Absent distention or tenderness Extremities: Absent edema Skin: Present intact Neuro: Present alert, awake and oriented x 3 Assessment and Plan *Assessment and plan (1) Protein-calorie malnutrition, severe: Status: Acute Category: Medical Code(s): E43 - Unspecified severe protein-calorie malnutrition (2) Ascites: Status: Acute Category: Medical Code(s): R18.8 - Other ascites (3) Bilateral pleural effusion: Status: Acute Category: Medical Code(s): J90 - Pleural effusion, not elsewhere classified (4) Anasarca: Status: Acute Category: Medical Code(s): R60.1 - Generalized edema (5) Trochanteric bursitis, left hip: Status: Acute Category: Medical Code(s): M70.62 - Trochanteric bursitis, left hip (6) Osteoarthritis of left knee: Status: Acute Qualifiers: Osteoarthritis type: primary Qualified Code(s): M17.12 - Unilateral primary osteoarthritis, left knee Category: Medical Code(s): M17.12 - Unilateral primary osteoarthritis, left knee (7) Adult failure to thrive: Status: Acute Category: Medical Code(s): R62.7 - Adult failure to thrive (8) Corneal ulcer of right eye: Status: Acute Category: Medical Code(s): H16.001 - Unspecified corneal ulcer, right eye (9) Weakness: Status: Acute Category: Medical Code(s): R53.1 - Weakness (10) Hypokalemia: Status: Acute Category: Medical Code(s): E87.6 - Hypokalemia Plan Plan to recheck labs tomorrow, add Megace today., monitor temp.
[2024-04-09] MEDS: DOXYCYCLINE HYCL 100 MG TABLET PO ×2 (08:14→20:18)
[2024-04-09] MEDS: MAGIC MOUTHWASH 300ML BOTTLE 30 ML PO ×3 (08:16→20:19)
[2024-04-09 09:18] LABS: Reticulin IgA Antibody Negative titer (Neg:<1:2.5)
--- NOTE | 2024-04-09 18:08 | PC.NURSE ---
PT HAS DONE FAIR THIS SHIFT. HE STILL HAS AN ALMOST NON-EXISTENT APPETITE. PT REFUSED THE APPETITE STIMULANT DESPITE ENCOURAGEMENT. HE REMAINS TO HAVE 4+ PITTING EDEMA TO HIS BILATERAL FEET AN DIS MOTTLED FROM ABOUT THE CALVES DOWN. PT REPORTS THAT THAT HAS BEEN LIKE THAT , FOR A LONG TIME . TEMPERATURE IS NOW WNL. EVIE PAWS ARE OFF. HE CONTINUES TO HAVE MULTIPLE CHINYERE COLORED STOOLS A SHIFT.
[2024-04-10] VITALS: BP 120/79; PULSE 74; RESP 18; TEMP 36.1; O2SAT 95
[2024-04-10 02:07] LABS: Calprotectin, Fecal 576 ug/g (0-120)
[2024-04-10 04:00] VITALS: BMI 20.9
[2024-04-10 05:00] VITALS: BP 103/60; PULSE 82; RESP 16; TEMP 36.9; O2SAT 94
[2024-04-10] MEDS: LEVOTHYROXINE 125MCG (0.125MG) TAB 125 MCG PO (06:14)
[2024-04-10 06:37] LABS: Basophils % 0.2 % (0.1-2.0); Eosinophils % 0.1 % (0.1-12.0); Hematocrit 37.2 % (42.0-52.0); Hemoglobin 12.1 g/dL (14.1-18.0); Lymphocytes # 0.4 K/mm3 (0.7-4.5); Mean Corpuscular HGB Conc 32.5 g/dL (31.8-35.4); Mean Corpuscular Hemoglobin 31.7 pg (27.0-31.2); Mean Corpuscular Volume 97.5 fl (80-94); Mean Platelet Volume 9.4 fl (7.4-10.4); Monocytes # 0.3 K/mm3 (0.1-1.0); Monocytes % 5.1 % (1.7-9.3); Neutrophils # 4.2 K/mm3 (1.8-7.8); Neutrophils % 85.6 % (37.0-80.0); Platelet Count 173 K/mm3 (142-424); Red Blood Count 3.81 M/mm3 (4.60-6.20); Red Cell Distribution Width 14.8 % (11.5-17.5); White Blood Count 4.9 K/mm3 (4.8-10.8)
[2024-04-10 07:02] LABS: MANUAL DIFFERENTIAL MANUAL DIFFERENTIAL (MANUAL DIFF)
[2024-04-10 07:18] LABS: Albumin Level 1.7 g/dl (3.5-5.0); Chloride 112 mmol/L (98-107); Sodium 133 mmol/L (136-145)
[2024-04-10 07:19] LABS: Potassium 3.6 mmoL/L (3.5-5.1)
[2024-04-10 07:21] LABS: Alanine Aminotransferase 43 U/L (12-78); Albumin/Globulin Ratio 0.7 (1.1-1.8); Alkaline Phosphatase 129 U/L (38-126); Anion Gap 10.6 mEq/L (5-15); Aspartate Amino Transferase 39 U/L (17-59); Bilirubin,Total 0.7 mg/dl (0.2-1.3); Blood Urea Nitrogen 45 mg/dl (9-20); Carbon Dioxide 14 mmol/L (22.0-30.0); Creatinine Clearance Estimated 61 mL/min (50-200); Estimated Glomerular Filt Rate 82 ml/min (>60); GFR (African American) 100 ML/MIN (>60); Globulin 2.5 g/dL (1.3-3.2); Total Protein,Serum 4.2 g/dl (6.3-8.2)
[2024-04-10 07:22] LABS: Calcium 6.9 mg/dl (8.4-10.2); Glucose 52 mg/dl (74-100)
[2024-04-10 08:00] VITALS: BP 138/76; PULSE 77; RESP 19; TEMP 36.6; O2SAT 99
[2024-04-10] MEDS: DOXYCYCLINE HYCL 100 MG TABLET PO ×2 (09:17→21:02)
[2024-04-10] MEDS: MEGESTROL ACETATE 400 MG/10 ML PO (09:18)
--- NOTE | 2024-04-10 09:32 | P.PN_ITS ---
Subjective *Date: 04/10/24 *Time: 09:32 Interval history: Patient feels a little better this morning, no hypothermia noted overnight. Medical Exam Vital signs and Labs for Last 24 Hours: Vital Signs Temp Pulse Resp BP Pulse Ox O2 Del Method 04/10/24 08:00 97.8 F 77 19 138/76 99 Room Air 04/10/24 05:00 98.4 F 82 16 103/60 L 94 L Room Air 04/10/24 00:54 Room Air 04/10/24 00:00 97.0 F L 74 18 120/79 95 Room Air 04/09/24 23:00 Room Air 04/09/24 21:00 Room Air 04/09/24 20:00 97.8 F 90 16 90/61 L 97 Room Air 04/09/24 19:39 Room Air 04/09/24 19:00 Room Air 04/09/24 17:00 Room Air 04/09/24 16:00 97.6 F 81 18 91/58 L 92 L Room Air 04/09/24 15:00 Room Air 04/09/24 13:00 Room Air 04/09/24 11:00 Room Air 04/09/24 10:00 98.0 F Intake and Output 04/09/24 04/10/24 04/10/24 23:59 07:59 15:59 Intake Total 600 / 1230 Output Total 225 / 225 0 / 225 Balance 600 / 905 -225 / -225 0 / -225 Intake: Intake, Oral Amount 600 / 1230 Output: Output, Urine Amount 225 / 225 0 / 225 Other: Number of Unmeasured Voids 1 Number of Bowel Movements 1 Weight 146 lb 6.4 oz Patient Weight 04/10/24 23:59 Weight 146 lb 6.4 oz Laboratory Results - last 24 hr 04/05/24 14:01: Stool Calprotectin 576 H 04/10/24 06:07: WBC 4.9, RBC 3.81 L, Hgb 12.1 L, Hct 37.2 L, MCV 97.5 H, MCH 31.7 H, MCHC 32.5, RDW 14.8, Plt Count 173, MPV 9.4, Neut % (Auto) 85.6 H, Lymph % (Auto) 9.0 L, [place] % (Auto) 5.1, Eos % (Auto) 0.1, Baso % (Auto) 0.2, Neut # (Auto) 4.2, Lymph # (Auto) 0.4 L, [place] # (Auto) 0.3, Eos # (Auto) 0.0, Baso # (Auto) 0.0, Sodium 133 L, Potassium 3.6, Chloride 112 H, Carbon Dioxide 14 L, Anion Gap 10.6, BUN 45 H D, Creatinine 0.90 D, Estimated Creat Clear 61, Estimated GFR 82, Est GFR ( Amer) 100 D, Glucose 52 L, Calcium 6.9 L, Total Bilirubin 0.7, AST 39, ALT 43, Alkaline Phosphatase 129 H, Total Protein 4.2 L, Albumin 1.7 L, Globulin 2.5, Albumin/Globulin Ratio 0.7 L I & O for Labs for Last 24 Hours: Intake & Output 04/07/24 04/08/24 04/09/24 04/10/24 23:59 23:59 23:59 23:59 Intake Total 940 / 1180 1065 / 1165 1230 / 1230 Output Total 100 / 100 100 / 325 225 / 225 Balance 840 / 1080 1065 / 1065 1130 / 905 -225 / -225 Weight 136 lb 1.6 oz 197 lb 11.2 oz 130 lb 5 oz 146 lb 6.4 oz Microbiology Reports for the Last 24 Hours: Microbiology 04/05/24 11:50 Peritoneal Fluid Gram Stain - Preliminary 04/05/24 11:50 Peritoneal Fluid Body Fluid Culture - Preliminary NO GROWTH AFTER 4 DAYS 04/05/24 11:50 Ascites Fluid Body Fluid Culture - Preliminary NO GROWTH AFTER 4 DAYS Constitutional: Present no acute distress, thin and cachectic Respiratory: Present CTA bilaterally Cardiac: Present Reg Rate and Rhythm GI: Present soft and normal bowel sounds; Absent distention or tenderness Extremities: Absent edema Skin: Present intact Neuro: Present alert, awake and oriented x 3 Assessment and Plan *Assessment and plan (1) Protein-calorie malnutrition, severe: Status: Acute Category: Medical Code(s): E43 - Unspecified severe protein-calorie malnutrition (2) Ascites: Status: Acute Category: Medical Code(s): R18.8 - Other ascites (3) Bilateral pleural effusion: Status: Acute Category: Medical Code(s): J90 - Pleural effusion, not elsewhere classified (4) Anasarca: Status: Acute Category: Medical Code(s): R60.1 - Generalized edema (5) Trochanteric bursitis, left hip: Status: Acute Category: Medical Code(s): M70.62 - Trochanteric bursitis, left hip (6) Osteoarthritis of left knee: Status: Acute Qualifiers: Osteoarthritis type: primary Qualified Code(s): M17.12 - Unilateral primary osteoarthritis, left knee Category: Medical Code(s): M17.12 - Unilateral primary osteoarthritis, left knee (7) Adult failure to thrive: Status: Acute Category: Medical Code(s): R62.7 - Adult failure to thrive (8) Corneal ulcer of right eye: Status: Acute Category: Medical Code(s): H16.001 - Unspecified corneal ulcer, right eye (9) Weakness: Status: Acute Category: Medical Code(s): R53.1 - Weakness (10) Hypokalemia: Status: Acute Category: Medical Code(s): E87.6 - Hypokalemia Plan Plan to give more IV potassium today, probable discharge to SNF tomorrow.
[2024-04-10 09:37] LABS: Lymphocytes % 4 % (10-50); Monocytes % 1 % (2-9); Neutrophils % 95 % (42-76); Platelet Estimate Normal; RBC Morphology Normal; Total Cells Counted 100
--- NOTE | 2024-04-10 09:58 | P.PN_ITS ---
Subjective *Date: 04/10/24 *Time: 09:58 Interval history: This patient is Basically unchanged. He has no abdominal complaints. Exam Data for Last 24 hours Vital signs and Labs for Last 24 Hours: Temp Pulse Resp BP Pulse Ox O2 Del Method O2 Flow Rate 97.8 F 77 19 138/76 99 Room Air 2 04/10/24 08:00 04/10/24 08:00 04/10/24 08:00 04/10/24 08:00 04/10/24 08:00 04/10/24 08:00 04/06/24 02:57 Laboratory Results - last 24 hr 04/05/24 14:01: Stool Calprotectin 576 H 04/10/24 06:07: WBC 4.9, RBC 3.81 L, Hgb 12.1 L, Hct 37.2 L, MCV 97.5 H, MCH 31.7 H, MCHC 32.5, RDW 14.8, Plt Count 173, MPV 9.4, Neut % (Auto) 85.6 H, Lymph % (Auto) 9.0 L, [place] % (Auto) 5.1, Eos % (Auto) 0.1, Baso % (Auto) 0.2, Neut # ( Auto) 4.2, Lymph # (Auto) 0.4 L, [place] # (Auto) 0.3, Eos # (Auto) 0.0, Baso # (Auto) 0.0, Total Counted 100, Neutrophils % (Manual) 95 H, Lymphocytes % (Manual) 4 L, Monocytes % (Manual) 1 L, Platelet Estimate Normal, RBC Morphology Normal, Sodium 133 L, Potassium 3.6, Chloride 112 H, Carbon Dioxide 14 L, Anion Gap 10.6, BUN 45 H D, Creatinine 0.90 D, Estimated Creat Clear 61, Estimated GFR 82, Est GFR ( Amer) 100 D, Glucose 52 L, Calcium 6.9 L, Total Bilirubin 0.7, AST 39, ALT 43, Alkaline Phosphatase 129 H, Total Protein 4.2 L, Albumin 1.7 L, Globulin 2.5, Albumin/Globulin Ratio 0.7 L I & O for Last 24 hours: Intake & Output 04/07/24 04/08/24 04/09/24 04/10/24 23:59 23:59 23:59 23:59 Intake Total 940 / 1180 1065 / 1165 1230 / 1230 Output Total 100 / 100 100 / 325 225 / 225 Balance 840 / 1080 1065 / 1065 1130 / 905 -225 / -225 Weight 136 lb 1.6 oz 197 lb 11.2 oz 130 lb 5 oz 146 lb 6.4 oz Microbiology Reports for the Last 24 Hours: Microbiology 04/05/24 11:50 Peritoneal Fluid Gram Stain - Preliminary 04/05/24 11:50 Peritoneal Fluid Body Fluid Culture - Preliminary NO GROWTH AFTER 4 DAYS 04/05/24 11:50 Ascites Fluid Body Fluid Culture - Preliminary NO GROWTH AFTER 4 DAYS Assessment and Plan *Assessment and plan (1) Protein calorie malnutrition: Status: Acute Category: Medical Code(s): E46 - Unspecified protein-calorie malnutrition (2) Adult failure to thrive: Status: Acute Category: Medical Code(s): R62.7 - Adult failure to thrive (3) Anasarca: Status: Acute Category: Medical Code(s): R60.1 - Generalized edema (4) Ascites: Status: Acute Category: Medical Code(s): R18.8 - Other ascites (5) Diarrhea: Status: Acute Category: Medical Code(s): R19.7 - Diarrhea, unspecified Plan 1. Ascites. The serum to ascites albumin gradient is 1.5. This is transudative ascites and the etiology is most likely to be portal hypertension given the fact that the SAAG is greater than 1.1. The white blood cell count/absolute neutrophil count there is normal. Ascitic LDH low normal and normal ascitic glucose. 2. Diarrhea. He does have elevated fecal calprotectin. Would consider trial of budesonide or corticosteroids. His stool PCR panel was negative for bacterial pathogens. 3. Protein calorie malnutrition. I did start Megace. We will see if that appetite and caloric intake improves
[2024-04-10] MEDS: KCl 20mEq/100ml 100 ML 50 MEQ IV ×2 (11:15→13:53)
[2024-04-10] MEDS: SODIUM CHLORIDE 0.9% 250ML BAG 250 ML IV (11:15)
[2024-04-10 16:00] VITALS: BP 107/64; PULSE 75; RESP 19; TEMP 36.4; O2SAT 97
--- NOTE | 2024-04-10 18:13 | PC.NURSE ---
PT HAS DONE WELL THIS SHIFT AND WAS UP IN THE CHAIR FOR LUNCH. PT'S EDEMA HAS IMPROVED. LESS NEED FOR MAGIC MOUTH WASH TODAY. VSS.
[2024-04-10 19:51] VITALS: BP 100/67; PULSE 72; RESP 16; TEMP 36.3; O2SAT 95
[2024-04-10] MEDS: MELATONIN 5MG TABLET 5 MG PO (21:05)
[2024-04-11] VITALS: BP 109/57; PULSE 77; RESP 16; TEMP 36.6; O2SAT 96
[2024-04-11 03:50] VITALS: BP 94/57; PULSE 76; RESP 16; TEMP 36.4; O2SAT 96
[2024-04-11 04:00] VITALS: BMI 20.7
[2024-04-11] MEDS: ACETAMINOPHEN 325MG TAB 650 MG PO (05:37)
[2024-04-11] MEDS: LEVOTHYROXINE 125MCG (0.125MG) TAB 125 MCG PO (06:17)
[2024-04-11 08:00] VITALS: BP 84/53; PULSE 78; RESP 16
--- NOTE | 2024-04-11 08:10 | EXP.PHA.PN ---
Subjective *Date: 04/11/24 *Time: 08:10 Medical Exam Vital signs and Labs for Last 24 Hours: Vital Signs Temp Pulse Resp BP Pulse Ox O2 Del Method 04/11/24 06:39 Room Air 04/11/24 05:00 Room Air 04/11/24 03:50 97.6 F 76 16 94/57 L 96 Room Air 04/11/24 03:00 Room Air 04/11/24 01:00 Room Air 04/11/24 00:00 97.9 F 77 16 109/57 L 96 Room Air 04/10/24 23:00 Room Air 04/10/24 21:02 Room Air 04/10/24 21:00 Room Air 04/10/24 19:51 97.3 F L 72 16 100/67 L 95 Room Air 04/10/24 18:56 Room Air 04/10/24 17:00 Room Air 04/10/24 16:00 97.5 F L 75 19 107/64 L 97 Room Air 04/10/24 15:00 Room Air 04/10/24 13:00 Room Air 04/10/24 11:00 Room Air 04/10/24 09:00 Room Air Intake and Output 04/10/24 04/11/24 04/11/24 23:59 07:59 15:59 Output Total 0 / 675 100 / 100 Balance 0 / -135 -100 / -100 Output: Output, Urine Amount 0 / 675 100 / 100 Other: Number of Unmeasured Voids 1 Number of Bowel Movements 1 1 Weight 65.771 kg Patient Weight 04/11/24 23:59 Weight 65.771 kg Laboratory Results - last 24 hr 04/10/24 06:07: Total Counted 100, Neutrophils % (Manual) 95 H, Lymphocytes % (Manual) 4 L, Monocytes % (Manual) 1 L, Platelet Estimate Normal, RBC Morphology Normal I & O for Labs for Last 24 Hours: Intake & Output 04/08/24 04/09/24 04/10/24 04/11/24 23:59 23:59 23:59 23:59 Intake Total 1065 / 1165 1230 / 1230 540 / 540 Output Total 100 / 325 675 / 675 100 / 100 Balance 1065 / 1065 1130 / 905 -135 / -135 -100 / -100 Weight 89.675 kg 59.109 kg 66.406 kg 65.771 kg Microbiology Reports for the Last 24 Hours: Microbiology 04/05/24 11:50 Peritoneal Fluid Gram Stain - Preliminary 04/05/24 11:50 Peritoneal Fluid Body Fluid Culture - Preliminary NO GROWTH AFTER 5 DAYS 04/05/24 11:50 Ascites Fluid Body Fluid Culture - Preliminary NO GROWTH AFTER 5 DAYS The patient's infection will respond to the chosen ABx?: Yes (ACITES/PERITONEAL FLUID CXS NO GROWTH AT 5 DAYS, AFEBRILE) Is the patient receiving the right drug, dose, and route?: Yes Could a more targeted ABx be ordered?: No
--- NOTE | 2024-04-11 08:15 | EXP.ACUTE.PN ---
Subjective *Date: 04/11/24 *Time: 09:12 Interval history: Patient's complaint today is a sore throat. He states he cannot talk and cannot swallow. Daughter and are at his bedside. He called them about 430 this morning. He states he wants to go home today. He does not want to eat any breakfast because he cannot swallow. He continues to have diarrhea. Patient was able to swallow pills crushed in applesauce this a.m. Daughter is here and feels like he is in the process of dying. Patient has told family he does not want a feeding tube. Daughter is going to discuss hospice with her father. Reviewed Dr. Ramey note/visit from yesterday. Patient agrees to try the budesonide. Medical Exam Vital signs and Labs for Last 24 Hours: Vital Signs Temp Pulse Resp BP Pulse Ox O2 Del Method 04/11/24 06:39 Room Air 04/11/24 05:00 Room Air 04/11/24 03:50 97.6 F 76 16 94/57 L 96 Room Air 04/11/24 03:00 Room Air 04/11/24 01:00 Room Air 04/11/24 00:00 97.9 F 77 16 109/57 L 96 Room Air 04/10/24 23:00 Room Air 04/10/24 21:02 Room Air 04/10/24 21:00 Room Air 04/10/24 19:51 97.3 F L 72 16 100/67 L 95 Room Air 04/10/24 18:56 Room Air 04/10/24 17:00 Room Air 04/10/24 16:00 97.5 F L 75 19 107/64 L 97 Room Air 04/10/24 15:00 Room Air 04/10/24 13:00 Room Air 04/10/24 11:00 Room Air 04/10/24 09:00 Room Air Intake and Output 04/10/24 04/11/24 04/11/24 19:59 03:59 11:59 Intake Total 240 / 240 Output Total 0 / 0 100 / 100 Balance 240 / 240 -100 / 140 Intake: Intake, Oral Amount 240 / 240 Output: Output, Urine Amount 0 / 0 100 / 100 Other: Number of Unmeasured Voids 1 Number of Bowel Movements 1 1 Weight 145 lb Patient Weight 04/11/24 11:59 Weight 145 lb Laboratory Results - last 24 hr 04/10/24 06:07: Total Counted 100, Neutrophils % (Manual) 95 H, Lymphocytes % (Manual) 4 L, Monocytes % (Manual) 1 L, Platelet Estimate Normal, RBC Morphology Normal I & O for Labs for Last 24 Hours: Intake & Output 04/08/24 04/09/24 04/10/24 04/11/24 11:59 11:59 11:59 11:59 Intake Total 1255 / 1255 630 / 630 1380 / 1380 240 / 240 Output Total 100 / 100 100 / 100 675 / 675 100 / 100 Balance 1155 / 1155 530 / 530 705 / 705 140 / 140 Weight 197 lb 11.2 oz 130 lb 5 oz 146 lb 6.4 oz 145 lb Microbiology Reports for the Last 24 Hours: Microbiology 04/05/24 11:50 Peritoneal Fluid Gram Stain - Preliminary 04/05/24 11:50 Peritoneal Fluid Body Fluid Culture - Preliminary NO GROWTH AFTER 5 DAYS 04/05/24 11:50 Ascites Fluid Body Fluid Culture - Preliminary NO GROWTH AFTER 5 DAYS Constitutional: Present no acute distress and cachectic Respiratory: Present crackles (Bibasilar crackles posteriorly) Cardiac: Present Regular Rhythm GI: Present soft and normal bowel sounds Extremities: Present edema (Bilateral lower leg) Comment:: Multiple excoriations on arms and legs Neuro: Present alert, awake and oriented x 3 Assessment and Plan *Assessment and plan (1) Protein calorie malnutrition: Status: Acute Category: Medical Code(s): E46 - Unspecified protein-calorie malnutrition (2) Adult failure to thrive: Status: Acute Category: Medical Code(s): R62.7 - Adult failure to thrive (3) Anasarca: Status: Acute Category: Medical Code(s): R60.1 - Generalized edema (4) Ascites: Status: Acute Category: Medical Code(s): R18.8 - Other ascites (5) Diarrhea: Status: Acute Category: Medical Code(s): R19.7 - Diarrhea, unspecified Plan Note from Dr. Ramey reviewed. Patient has decided he does not want SNF placement but wants to go home with hospice care.
[2024-04-11] MEDS: DOXYCYCLINE HYCL 100 MG TABLET PO (08:54)
--- NOTE | 2024-04-11 09:58 | PC.NURSE ---
Was not able to obtain accurate O2 stat or temp (axillary/oral). I offered to try again after trying several times. Pt and family stated they would rather just leave it be due to pt going home on hospice. Nurse notified.
--- NOTE | 2024-04-11 13:06 | DIET.NUTRFU ---
Patient is showing decline since Thursday, having increased swallowing issues secondary to sore throat. Swish and swallow ordered. Dr Ramey also ordered Megace for appetite and patient refused. He wishes to go home on hospice. overhead line worker aware and working on it. No further dietary needs, comfort measures at this point
[2024-04-11 15:40] LABS: Pancreatic Elastase, Fecal 38 (>200)
--- NOTE | 2024-04-11 18:24 | INFXCTL.NOTE ---
awaiting ems transport
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
[2024-04-14 21:32] LABS: Lactoferrin, Fecal, Quant. 19.81 ug/mL(g) (0.00-7.24)
== END 2024-04-11 20:00 | disposition hospice, home (50) | DRG 641 ==
LOC: ER 16:48 → 2ND 17:47
PROVIDERS: Internal Medicine Gastroenterology; Nurse Practitioner Family; Physician Assistant; Admitting Provider Family Medicine; Emergency Provider Student in an Organized Health Care Education/Training Program; PCP Family Medicine; Visit Provider Family Medicine
DX: E43 Unspecified severe protein-calorie malnutrition (principal); R18.8 Other ascites; J90 Pleural effusion, not elsewhere classified; R60.1 Generalized edema; M70.62 Trochanteric bursitis, left hip; R62.7 Adult failure to thrive; E87.6 Hypokalemia; E03.9 Hypothyroidism, unspecified; Z87.891 Personal history of nicotine dependence
CPT/HCPCS: 49082; 36415; 49083; 74177; 80048; 80053; 82042; 82272; 82656; 82945; 83516; 83605; 83615; 83630; 83735; 83993; 84100; 84155; 84302; 84484; 84999; 85007; 85025; 86255; 86256; 87070; 87205; 87507; 89051; 93005; 93306; 93308; 97110; 97163; 97166; 97530; 99285; G0328; J0131; J3475; J7030; Q9967